=== PATIENT | male | born 1960 | race Caucasian/White ===

== ENCOUNTER 2024-09-08 08:10 | Outpatient (OUT) | payer BC, SELFPAY ==
[2024-09-08 08:30] LABS: Basophils Percent Auto 0.6 % (0.2-2.0); Eosinophils Absolute Auto 0.1 10^3/uL (0.0-0.7); Eosinophils Percent Auto 1.6 % (0.9-7.0); Hematocrit 41.9 % (42.0-54.0); Hemoglobin 13.9 g/dL (14.0-18.0); Immature Granulocytes Abs Auto 0.01 10^3/uL (0.00-0.03); Immature Granulocytes Pct Auto 0.2 % (0.0-0.5); Lymphocytes Percent Auto 21.4 % (20.5-60.0); Mean Corpuscular HGB Conc 33.2 g/dL (29.9-35.2); Mean Corpuscular Hemoglobin 31.7 pg (25.9-34.0); Mean Corpuscular Volume 95.7 fL (80.0-94.0); Monocytes Absolute Auto 0.5 10^3/uL (0.3-0.8); Monocytes Percent Auto 10.5 % (1.7-12.0); Neutrophils Absolute Auto 3.2 10^3/uL (1.4-6.5); Neutrophils Percent Auto 65.7 % (43.0-75.0); Platelet Count 241 10^3/uL (150-450); Red Blood Count 4.38 10^6/uL (4.70-6.10); Red Cell Distribution Width 13.5 % (11.0-15.0); White Blood Count 4.9 10^3/uL (4.0-11.0)
[2024-09-08 08:43] LABS: Estimated Average Glucose 131 mg/dL; Glycohemoglobin A1C 6.2 % (4.5-6.2)
[2024-09-08 08:44] LABS: Microalbum Creatinine Ratio Ur 10.2 mg/g (0.0-29.9); Microalbumin Urine Random <1.3 mg/dL (<=30.0)
[2024-09-08 09:24] LABS: Alanine Aminotransferase 45 U/L (16-63); Albumin Level 3.7 g/dL (3.4-5.0); Alkaline Phosphatase 74 U/L (46-116); Aspartate Amino Transferase 17 U/L (15-37); BUN Creatinine Ratio 12.2; Bilirubin Total 0.5 mg/dL (0.2-1.0); Calcium 8.9 mg/dL (8.5-10.1); Carbon Dioxide 29.8 mmol/L (21.0-32.0); Chloride 106 mmol/L (98-107); Chol HDL Ratio 3.4; Cholesterol 173 mg/dL (<=200); Estimated GFR (African America >60 (>=60 mL/min/1.73m^2); Estimated GFR (Non-African Ame 55 (>=60 mL/min/1.73m^2); Globulin 3.6 g/dL; Glucose 130 mg/dL (74-106); HDL Cholesterol 51 mg/dL (40-60); LDL Cholesterol Calculated 105.8 mg/dL; Potassium 3.8 mmol/L (3.5-5.1); Sodium 144 mmol/L (136-145); TSH W/ REFLEX FT4 3.484 uIU/mL (0.358-3.740); Total Protein 7.3 g/dL (6.4-8.2); Triglycerides 81 mg/dL (<=150); VLDL CHOLESTEROL 16.2 mg/dL
== END 2024-09-08 08:11 | disposition home or self-care (01) ==
LOC: LAB 08:15
DX: Z00.00 Encounter for general adult medical examination without abnormal findings (principal); I10 Essential (primary) hypertension
CPT/HCPCS: 36415; 80053; 80061; 82043; 82570; 83036; 84443; 85025

== ENCOUNTER 2025-04-19 10:15 | Outpatient (OUT) | payer MEDICARE, OTHER, SELFPAY ==
--- OUTSIDE RECORDS SUMMARY | 2024-11-30 08:50 | XMS_ITS ---
Author Organization [facility] in [place] Address [address] [place] [address] Care Team Providers Care Recreation Superintendent Name Role Phone Genaro Lopez MD Primary Care Provider Unavailab fady Ronaldo Saini Unavailable [phone] REASON FOR VISIT GRILL COOK-Referral Appointment Encounters Encounter Location Date Provider Diagnosis Pulmonary [facility] [place] [address] [place] [address] 11/30/2024 Ronaldomiles Saini Plan Of Treatment Next Appt Details Provider Name:Ronaldo Saini, 01/03/2026 11:00:00 AM, [address] [place], [address], Progress Notes * Satya JUNG RDOB:[birth year] (63 yo M)Acc No.[id number]:11/30/2024 Patient: David Satya FLORES :1960 A ge:63 Y S ex:Male Address:[address] [place] [address], [phone] * true * Date: Generated for Printi ng/Faxing/eTransmitting on: 0 04/19/2025 10:22 AM EDT
--- OUTSIDE RECORDS SUMMARY | 2025-01-03 07:00 | XMS_ITS ---
Author Organization [facility] in [place] Address [address] [place] [address] Care Team Providers Care Epic Specialist Name Role Phone Genaro Lopez MD Primary Care Provider Ronaldo Romero Unavailable [phone] Allergies No Known Allergies REASON FOR VISIT PRADEEP-Mtz Medical Medications Medication SIG (Take, Route, Frequency, Duration) Notes Start Date End Date Status amLODIPine Besylate 10 MG Oral for 90 Days Active Social History Tobacco Use: Social History Observation Description Date Details (start date - stop date) Never Smoker NA - NA Tobacco Control (Standard) Question Answer Notes Tobacco use: Nonsmoker Problems Problem Type SNOMED Code ICD Code Onset Dates Problem Status W/U Status Risk Notes Problem PRADEEP (obstructive sleep apnea) (G47.33) Active confirmed Vital Signs Weight 226.2 lbs 01/03/2025 Height 76 in 01/03/2025 Blood pressure systolic 175 mm Hg 01/04/20 25 Blood pressure diastolic 82 mm Hg 025 Temperature 96.8 degrees Fahrenheit 01/04/20 25 Heart Rate 68 /min 01/03/2025 Respiratory Rate 18 /min 01/03/2025 BMI 27.53 kg/m2 01/03/2025 Oximetry 98 % 01/03/2025 Encounters Encounter Location Date Provider Diagnosis Pulmonary Medicine [place] [address] [place] [address] 01/03/2025 Ronaldo Saini PRADEEP (obstructive sleep apnea) G47.33 Assessments Encounter Date Diagnosis (ICD Code) Assessment Notes Treatment Notes Treatment Clinical Notes Section Notes 01/03/2025 PRADEEP (obstructive sleep apnea) (ICD-10 - G47.33) Igjw-ju-xukv encounter performed with the patient to document continued need for PAP therapy. -Current DME: [facility] -PS11/02/2008; Initial AHI: 41 -Last PAP titration: 11/07/2008 @ 73wjL5S -Compliance was reviewed from 12/03/2024 - 01/01/2025 -Total days used: (100%) -Total of all days >4 hours of use: (100%) -Current model, mode, & pressure: AirSense 11 AutoSet [id number] -Residual AHI: 1.7 -Air leak (median): 0L/min -Mask/harness fitting: Well -Sleep quality: Improved with CPAP use -Daytime hypersomnolence: Decreased with CPAP use -Recommendations: Patient is doing very well with his CPAP. He has superb compliance. There are no significant concerning signs noted on data. AHI is improved from 41 at baseline to 1.7 with CPAP use. I discussed concerns with the patient regarding arbitrarily increasing his pressures without notifying a healthcare provider; explained that a jump of 10 to 79xwN2T can be significant, but he states he is tolerating the increased pressure and his sleep partner states he no longer snores. If he develops issues in the future, may need to consider changing to an auto CPAP setting. I also discussed that his last titration was over 16 years ago. He is doing well on the current settings, so I do not feel there is a need to repeat it. However, he is now Medicare age. Given the length of time since last CPAP titration (which was scored according to 2007 criteria, prior to when Medicare developedthe 4% desaturation rule), he may require a new study in order for him to get supplies, let alone new CPAP when needed. He voiced understanding and is willing to get a study if it is necessary. Otherwise, the patient was reminded to continue to wear the PAP @ bedtime and with any naps. -Note: This sdsf-ey-prrv visit comes with my authorization that the patient's DME may request to renew, reorder, and/or replace tubing, supplies, mask, and/or PAP device (if applicable). Plan Of Treatment Treatment Notes Assessment Notes PRADEEP (obstructive sleep apnea) Bdrk-wo-clfe encounter performed with the patient to document continued need for PAP therapy. -Current DME: [facility] -PS11/02/2008; Initial AHI: 41 -Last PAP titration: 11/07/2008 @ 51fyE3H -Compliance was reviewed from 12/03/2024 - 01/01/2025 -Total days used: (100%) -Total of all days >4 hours of use: 30 (100%) -Current model, mode, & pressure: AirSense 11 AutoSet [id number] -Residual AHI: 1.7 -Air leak (median): 0L/min -Mask/harness fitting: Well -Sleep quality: Improved with CPAP use -Daytime hypersomnolence: Decreased with CPAP use -Recommendations: Patient is doing very well with his CPAP. He has superb compliance. There are no significant concerning signs noted on data. AHI is improved from 41 at baseline to 1.7 with CPAP use. I discussed concerns with the patient regarding arbitrarily increasing his pressures without notifying a healthcare provider; explained that a jump of 10 to 00npR4M can be significant, but he states he is tolerating the increased pressure and his sleep partner states he no longer snores. If he develops issues in the future, may need to consider changing to an auto CPAP setting. I also discussed that his last titration was over 16 years ago. He is doing well on the current settings, so I do not feel there is a need to repeat it. However, he is now Medicare age. Given the length of time since last CPAP titration (which was scored according to 2007 criteria, prior to when Medicare developedthe 4% desaturation rule), he may require a new study in order for him to get supplies, let alone new CPAP when needed. He voiced understanding and is willing to get a study if it is necessary. Otherwise, the patient was reminded to continue to wear the PAP @ bedtime and with any naps. -Note: This qlyd-pf-fwud visit comes with my authorization that the patient's DME may request to renew, reorder, and/or replace tubing, supplies, mask, and/or PAP device (if applicable). Next Appt Details Follow Up: 1 Year, Reason: O SA Provider Name:Ronaldo Saini, 01/03/2026 11:00:00 AM, [address] [place], [address], Progress Notes * Satya JUNG RDOB:[birth year] (64 yo M)Acc No.[id number]:01/03/2025 New Patient Patient: Satya SY Provider: Lei Saini DO :1960 A ge:64 Y S ex:Male Date:01/03/2025 Address:[address] [place], [place] [address] Pcp:Genaro Lopez MD Check In:10:53 AM ESTCheck O ut:11:32 AM EST Subjective: * Chief Complaints: * O -[facility] * HPI: G eneral: NEW PATIENT 64yo male presents with history of PRADEEP. He was diagnosed in 2008 with severe PRADEEP with AHI 41.� Titration yielded target pressure of 71mgY3N. He has been compliant with his CPAP for years. States he received a new CPAP 2-3 years ago d/t the 5G upgrade (old CPAP was unable to transmit data). He states about 2-3 months ago his sleep partner noticed that he was snoring despite the CPAP; he arbitrarily changed the CPAP settings to 15 cm H2O. He states he is tolerating this pressure very well without any complaints. He is able to tolerate the higher pressure. Reviewed compliance data. He has superb compliance data with no concerning findings. Residual AHI is 1.7. MA Intake Comments:. Patient is self referred for PRADEEP. DME:[facility]. Patient is compliant with his PAP. Patient denies any complaints with his machine/supplies.Patient reports great benefit from his PAP and denies complaints today. E pworth Sleepiness Scale: Tovey Sleepiness Scale C ronan of dozing while sitting and reading:�0 - Never C ronan of dozing while watching TV: 0 - Never C ronan of dozing while sitting in a public place: 0 - Never C ronan of dozing as a passenger in a car for an hour without a break: 0 - Never C ronan of dozing while lying down in the afternoon to rest: 0 - Never C ronan of dozing while sitting and talking to someone: 0 - Never C ronan of dozing while sitting quietly after lunch: 0 - Never C ronan of dozing in a stopped car for a few minutes in traffic: 0 - Never T OTAL SCORE: 0 * ROS: G eneral/Constitutional: Fever or sweats d enies. C hange of appetite d enies. C hills d enies. W eight Change d enies. H EENT: Dry mouth d enies. S ore throat d enies. O ral Ulcers d enies. P ost Nasal Drip D enies. C ongestion D enies. H oarseness�Denies. C ardiovascular: Tachycardia d enies. E eden D enies. C hest pain d enies. P alpitations d enies. R espiratory: Chest tightness d enies. P leurisy D enies. D yspnea d enies. C ough d enies. H emoptysis d enies. W heezing d enies.� G astrointestinal: Acid Reflux/GERD/Heartburn d enies. D ysphagia d enies. M usculoskeletal: Arthralgias/joint pain D enies. S kin: Easy bruising d enies. R alexandra d enies. � N eurologic: Seizures d enies. T remor d enies. H ematology: Abnormal Bleeding d enies. P sychiatric: Anxiety d enies. * Active Problem List G47.33 PRADEEP (obstructive sle ep apnea) Modified On:01/03/2025W/U Status:confirmed * Medical History: * Surgical History: D enies Past Surgical History * Hospitalization/Major Diagno stic Procedure: D enies Past Hospitalization * Family History: F ather: diagnosed with Unspecified essential hypertension. M other: diagnosed with Unspecified essential hypertension. 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 D rugs/Alcohol: D rugs H ave you used drugs other than those for medical reasons in the past 12 months? N o D oes the Patient have a History of Drug Abuse in the Past? N o Caffeine I ntake: 1 -2 cups per day Coffee Do you drink alcohol?: Yes, Socially. Do you smoke marijuana?: Denies. * Medications: T akingamLODIPine Besylate 10 MG Tablet Oral Medication List reviewed and reconciled with the patientTaking amLODIPine Besylate 10 MG Tablet Oral Medication List reviewed and reconciled with the patient * Allergies: N .K.D.A.no[Allergies Verified] Objective: * Vitals: W t:226.2lbs, Ht:76in, BP:sittin/82mm Hg, Temp:Forehead:96.8F, HR:68/min, RR:18/min, BMI:27.53Index, Oxygen sat %:Room Air:98%, Ht-cm: 193.04 cm, Wt-k.6 kg. * Examination: E xam: GENERAL APPEARANCE: A ppears stated age. Skin N ormal. Mouth P ink and moist. Oropharynx M allampati Class IV. Trachea M idline. Chest N ormal. Respiratory Normal M ovements, E ffort N ormal. Auscultation N ormal breath sounds. Cardiac R egular rate and rhythm. Gastrointestinal N ormal. Vascular N o edema. Musculoskeletal N ormal posture. Neurological F ocal, intact. Psychiatric A lert and oriented x3. Mentation/Cognition N ormal. Assessment: * Assessment: 1. O SA (obstructive sleep apnea) - G47.33 (Primary) Plan: * Treatment: * Procedure Codes: * Preventive Medicine: COVID Vaccination: H as patient had COVID Vaccination? COVID Vaccination Y es 07/31/2021 Immunization Status: P neumovacc P t Refused. I nfluenza P t Refused. Screenings/Counseling: F ALL RISK SCREENING Fall Risk Assessment: N o falls in the past year Are you afraid of falling? N o T OBACCO ACTION PLAN Exclusion: M edical Reason Non Smoker Type of Medical Reason: N ot indicated F TREVON EXCLUSION Reason: P atient Reason refused/declined Type of Patient Reason: D rug declined by patient B MO ACTION PLAN Above Normal BMI Follow-up D ietary management education, guidance, and counseling * Follow Up: 1 Year (Reason: PRADEEP) * * Sign off status: Completed Visit Status: C HK (Check Out) true * Provider: Lei Saini DO Date: 0 01/03/2025 Generated for Lucioi jair/Famichaelg/eTransmitting on: 0 04/19/2025 10:22 AM EDT History and Physical Notes * HPI (History of Present Illness) Category Sub-Category Detail Notes Category Not es General Patient is self referred for PRADEEP. DME:[facility]. Patient is compliant with his PAP. Patient denies any complaints with his machine/supplies. Patient reports great benefit from his PAP and denies complaints today. Tovey Sleepiness Scale Tovey Sleepiness Scale Chance of dozing while sitting and reading:: 0 - Never Chance of dozing while watching TV:: 0 - Never Chance of dozing while sitting in a publ ic place:: 0 - Never Chance of dozing as a [place] in a car for an hour without a break:: 0 - Never Chance of dozing while lying down in the afternoon to rest:: 0 - Never Chance of dozing while sitting and talki ng to someone:: 0 - Never Chance of dozing while sitting quietly a fter lunch:: 0 - Never Chance of dozing in a stopped car for a few minutes in traffic:: 0 - Never TOTAL SCORE:: 0 Examination Category Sub-Category Detail Notes Category Not es Exam GENERAL APPEARANCE: Appears stated age Skin Normal Mouth [place] and moist Trachea Midline Chest Normal Respiratory Normal Movements, Ef fort Normal Auscultation Normal breath sounds Cardiac Regular rate and rhy thm Gastrointestinal Normal Vascular No edema Musculoskeletal Normal posture Neurological Focal, intact Psychiatric Alert and oriented x 3 Mentation/Cognition Normal Oropharynx Mallampati Class IV
--- OUTSIDE RECORDS SUMMARY | 2025-04-19 09:15 | XMS_ITS | Encounter Summary ---
Author Organization [facility] Address [address] [place] [address] Care Team Providers Care Public Works Director Name Role Phone Genaro Lopez MD Primary Care Provider [phone] Reason for Visit * Reason Comments Follow-up 6M F/UP Encounter Details Date Type Department Care Team ([facility] Contact Info) Description 04/19/2025 9:15 AM EDT Office Visit [facility] [address] [place] [address] Genaro Lopez MD [address] [place] [address] Benign essential hypertension (Primary Dx); PRADEEP (obstructive sleep apnea); Prediabetes; Iron deficiency anemia, unspecified iron deficiency anemia type; Colon cancer screening Social History Tobacco Use Types Packs/Day Years Used Date Smoking Tobacco: Never Passive Smoke Exposure: Never Smokeless Tobacco: Never Alcohol Use Standard Drinks/Week Comments Never 0 (1 standard drink = 0.6 oz pur e alcohol) B1300 Health Literacy Answer Date Recor ded How often do you need to hav e someone help you when you read instructions, pamphlets, or other written material from your doctor or pharmacy? Never 09/05/2024 Social Connection and Isolat ion Panel [NHANES] Answer Date Recorded In a typical week, how many times do you talk on the phone with family, friends, or neighbors? More than three times a week 09/05/2024 How often do you get togethe r with friends or relatives? More than three times a week 09/05/2024 How often do you attend [facility] or alevism services? 1 to 4 times per year 09/05/2024 Do you belong to any clubs o r organizations such as yazidism groups, unions, fraternal or athletic groups, or school groups? Yes 09/05/2024 How often do you attend meet ings of the clubs or organizations you belong to? More than 4 times per year 09/05/2024 Are you , , di vorced, , never , or living with a partner? 09/05/2024 AUDIT-C Answer Date Recorded Q1: How often do you have a drink containing alc ohol? Monthly or less 09/05/2024 Q2: How many drinks containi ng alcohol do you have on a typical day when you are drinking? 1 or 2 09/05/2024 Q3: How often do you have si x or more drinks on one occasion? Never 09/05/2024 Overall Financial Resource Strain (CARDIA) Answe r Date Recorded How hard is it for you to pa y for the very basics like food, housing, medical care, and heating? Not hard at all 09/05/2024 PHQ-2 Answer Date Recorded Patient Health Questionnaire-2 Score 0 03/31/2024 [facility] - Occupational Stress Questionnaire Answer Date Recorded Do you feel stress - tense, restless, nervous, or anxious, or unable to sleep at night because your mind is troubled all the time - these days? Not at all 09/05/2024 Exercise Vital Sign Answer Date Recorde d On average, how many days pe r week do you engage in moderate to strenuous exercise (like a brisk walk)? 6 days 09/05/2024 On average, how many minutes do you engage in exercise at this level? 60 min 09/05/2024 Hunger Vital Sign Answer Date Recorded Within the past 12 months, y ou worried that your food would run out before you got the money to buy more. Never true 09/05/20 24 Within the past 12 months, t he food you bought just didn't last and you didn't have money to get more. Never true 09/05/2024 PRAPARE - Transportation Answer Date Re corded In the past 12 months, has l ack of transportation kept you from medical appointments or from getting medications? No 11/2023 In the past 12 months, has l ack of transportation kept you from meetings, work, or from getting things needed for daily living? No 09/05/2024 Housing Stability Vital Sign Answer Edin e Recorded In the last 12 months, was t here a time when you were not able to pay the mortgage or rent on time? No 09/05/2024 In the past 12 months, how m any times have you moved where you were living? 0 09/05/2024 At any time in the past 12 m [facility], were you homeless or living in a penitentiary (including now)? No 09/05/2024 Sex and Gender Information Value Date Recorded Sex Assigned at Male 02/29/2024 8:54 AM EDT Legal Sex Male 11:09 PM EDT Gender Identity Male 02/29/2024 8:54 AM EDT Sexual Orientation Straight 12/14/2024 7: 56 AM EDT documented as of this encounter Last Filed Vital Signs Vital Sign Reading Time Taken Comments Blood Pressure 182/78 04/19/2025 9:38 AM EDT Pulse 70 04/19/2025 9:38 AM EDT Temperature 36.6 C (97.8 F) 04/19/2025 9:38 AM EDT Respiratory Rate 20 04/19/2025 9:38 AM EDT Oxygen Saturation 98% 04/19/2025 9:38 AM EDT Inhaled Oxygen Concentration - - Weight 104 kg (230 lb) 04/19/2025 9:38 AM EDT Height 193 cm (6' 4 ) 04/19/2025 9:38 AM EDT Body Mass Index 28 04/19/2025 9:38 AM EDT documented in this encounter Progress Notes * Genaro Lopez MD - 04/19/2025 10:00 AM EDTAssociated Problem(s): Prediabetes Repeat labs. * Genaro Lopez MD - 04/19/2025 10:00 AM EDTAssociated Problem(s): PRADEEP (obstructive sleep apnea) Doing well with CPAP and continue nightly. Patient is benefiting from PAP therapy. * Genaro Lopez MD - 04/19/2025 10:00 AM EDTAssociated Problem(s): Benign essential hypertension BP elevated today but previously controlled and monitor PRN. * Genaro Lopez MD - 04/19/2025 9:15 AM EDT Images from the original note were not included. Subjective Patient ID: Satya Fowler is a 64 y.o. male who presents for Follow-up (6M F/UP). Follow up HTN, prediabetes, and PRADEEP. Patient feels well today. Not checking BP away from office andpreviously controlled. BP elevated today at 182/78. Taking medication daily and tolerating without side effects. PRADEEP controlled with CPAP. Using machine nightly for entire time asleep, typically 6-8 hours. Sleeping well and not waking up as much during night. Rested in am and not as tired during day. Due for repeat labs. Review of Systems Constitutional: Negative for fatigue. Respiratory: Negative for cough, shortness of breath and wheezing. Cardiovascular: Negative for chest pain and palpitations. Gastrointestinal: Negative for abdominal pain, diarrhea, nausea and vomiting. Genitourinary: Negative for dysuria. Objective Physical Exam Constitutional: General: He is not in acute distress. Appearance: Normal appearance. HENT: Head: Normocephalic. Right Ear: Tympanic membrane and ear canal normal. Left Ear: Tympanic membrane and ear canal normal. Eyes: Extraocular Movements: Extraocular movements intact. Pupils: Pupils are equal, round, and reactive to light. Cardiovascular: Rate and Rhythm: Normal rate and regular rhythm. Heart sounds: No murmur heard. No friction rub. No gallop. Pulmonary: Breath sounds: Normal breath sounds. No wheezing, rhonchi or rales. Abdominal: General: Bowel sounds are normal. There is no distension. Palpations: Abdomen is soft. Tenderness: There is no abdominal tenderness. There is no guarding or rebound. Musculoskeletal: Left lower leg: No edema. Neurological: Mental Status: He is alert. Assessment/Plan Problem List Items Addressed This Visit Benign essential hypertension - Primary BP elevated today but previously controlled and monitor PRN. Relevant Orders Basic metabolic panel PRADEEP (obstructive sleep apnea) Doing well with CPAP and continue nightly. Patient is benefiting from PAP therapy. Prediabetes Repeat labs. Relevant Orders Hemoglobin A1c Iron deficiency anemia Relevant Orders CBC and differential Other Visit Diagnoses Colon cancer screening Relevant Orders Cologuard® colon cancer screening documented in this encounter Plan of Treatment Upcoming Encounters Date Type Department Care Team (Late st Contact Info) Description 08/15/2025 2:05 PM EST Office Visit [facility] [address] [place] [phone] Domi Russo MD [address] [place] [address] 09/13/2025 9:00 AM EST Office Visit [facility] [address] [place] [address] Genaro Lopez MD [address] [place] [address] Scheduled Orders Name Type Priority Associated Diagnoses Orde r Schedule Basic metabolic panel Lab Routine Benign essential hypertension Expected: 04/19/2025 (Approximate), Expires: 04/19/2026 Hemoglobin A1c Lab Routine Prediabetes Expected: 04/19/2025 (Approximate), Expires: 04/19/2026 CBC and differential Lab Routine Iron deficiency anemia, unspecified iron deficiency anemia type Expected: 04/19/2025 (Approximate), Expires: 04/19/2026 Cologuard colon cancer screening Lab Routine Colon cancer screening Expected: 04/19/2025 (Approximate), Expires: 04/19/2026 documented as of this encounter Visit Diagnoses Diagnosis Benign essential hypertension- Primary Essential hypertension, benign PRADEEP (obstructive sleep apnea) Obstructive sleep apnea (adult) (pediatric) Prediabetes Other abnormal glucose Iron deficiency anemia, unspecified iron deficiency anemia type Colon cancer screening Special screening for malignant neoplasms, colon documented in this encounter Care Teams Public Works Director Relationship Specialty Start Date End Date Genaro Lopez MD [address] [place] [phone] PCP - General Family Medicine 10/10/24 documented as of this encounter
--- OUTSIDE RECORDS SUMMARY | 2025-04-19 10:22 | XMS_ITS | Encounter Summary ---
Author Organization [facility] Address [address] [place] [address] Care Team Providers Care Manager Mobile Name Role Phone Genaro Lopez MD Primary Care Provider [phone] Encounter Details Date Type Department Care Team (Late Contact Info) Description 04/19/2025 Bamboo flowsheet [facility] [address] [place] [address] Genaro Lopez MD [address] [place] [address] Social History Tobacco Use Types Packs/Day Years [...] week 09/05/2024 How often do you attend chur or cheondoism services? 1 to 4 times per year 09/05/2024 Do you belong to any clubs o r organizations such as anabaptism groups, unions, fraternal or athletic groups, or [...] Recorded Patient Health Questionnaire-2 Score 0 03/31/2024 [facility] of Occupat ional [facility] - Occupational Stress Questionnaire Answer Date Recorded [...] any time in the past 12 m [facility], were you homeless or living in a chcf (including now)? No 09/05/2024 Sex and Gender Information Value Date Recorded Sex Assigned at Male 02/29/2024 8:54 AM EDT Legal Sex Male 11:09 PM EDT Gender Identity Male 02/29/2024 8:54 AM EDT Sexual Orientation Straight 12/14/2024 7: 56 AM EDT documented as of this encounter Plan of Treatment Upcoming Encounters Date Type Department Care Team (Late st Contact Info) Description 08/15/2025 2:05 PM EST Office Visit [facility] [address] [place] [address] Domi Russo MD [address] [place] [address] 09/13/2025 9:00 AM EST Office Visit [facility] [address] [place] [address] Genaro Lopez MD [address] [place] [address] documented as of this encounter Visit Diagnoses Not on filedocumented in this encounter Care Teams Manager Mobile Relationship Specialty Start Date End Date Genaro Lopez MD [address] [place] [address] PCP - General Family Medicine 10/10/24 documented as of this encounter
--- OUTSIDE RECORDS SUMMARY | 2025-04-19 10:22 | XMS_ITS | Encounter Summary ---
Author Organization [facility] Address [address] [place] [address] Care Team Providers Care Supervisor Jewelry Department Name Role Phone Genaro Lopez MD Primary Care Provider [phone] Encounter Details Date Type Department Care Team ([facility] Contact Info) Description 02/21/2025 Results Follow-Up [facility] [address] [facility] [address] [place] [address] Domi Russo MD [address] [facility] [address] [place] [address] Social History Tobacco Use Types Packs/Day Years [...] How often do you attend chur or amish services? 1 to 4 times per year 09/05/2024 Do you belong to any clubs o r organizations such as islam groups, unions, fraternal or athletic groups, or [...] Recorded Patient Health Questionnaire-2 Score 0 03/31/2024 [facility] of Occupat ional [facility] - Occupational Stress Questionnaire Answer [...] any time in the past 12 m [facility], were you homeless or living in a half-way (including now)? No 09/05/2024 Sex and Gender [...] 2:05 PM EST Office Visit [facility] [address] [place] [address] Domi Russo MD [address] [place] [address] 09/13/2025 9:00 AM EST Office Visit [facility] [address] [place] [address] Genaro Lopez MD [address] [place] [address] documented as of this encounter Visit Diagnoses Not on filedocumented in this encounter Care Teams Supervisor Jewelry Department Relationship Specialty Start Date End Date Genaro Lopez MD [address] [place] [address] PCP - General Family Medicine 10/10/24 documented as of this encounter
--- OUTSIDE RECORDS SUMMARY | 2025-04-19 10:22 | XMS_ITS | Patient Health Record ---
Author Organization [facility] [place] Address [address] [place] [address] Care Team Providers Care Case Work Aide Name Role Phone Genaro Lopez MD Primary Care Provider Ronaldo Romero Unavailable [phone] Allergies No Known Allergies Reason For Referral No Information Medications Medication SIG (Take, Route, Frequency, Duration) Notes Start Date End Date Status amLODIPine Besylate 10 MG Oral for 90 Days Active Immunizations Vaccine Route Administration Date Status Comme nts DTP - historic Unknown 09/28/2022 Administered SARS-COV-2 (COVID 19 Moderna - Booster 0.25mL) Unknown 07/31/2021 Administered Social History Tobacco Use: Social History Observation Description Date Details (start date - stop date) Never Smoker NA - NA Tobacco Control (Standard) Question Answer Notes Tobacco use: Nonsmoker Problems Problem Type SNOMED Code ICD Code Onset Dates Problem Status W/U Status Risk Notes Problem PRADEEP (obstructive sleep apnea) (G47.33) Active confirmed Vital Signs Heart Rate 68 /min 01/03/2025 Temperature 96.8 degrees Fahrenheit 01/03/2025 Respiratory Rate 18 /min 01/03/2025 Blood pressure diastolic 82 mm Hg 01/03/2025 Oximetry 98 % 01/03/2025 Height 76 in 01/03/2025 Blood pressure systolic 175 mm Hg 01/03/2025 Weight 226.2 lbs 01/03/2025 BMI 27.53 kg/m2 01/03/2025 Encounters Encounter Location Date Provider Diagnosis [facility] [address] [place] [address] 11/30/2024 Ronaldo Saini [facility] [address] [place] [address] 01/03/2025 Ronaldo Saini PRADEEP (obstructive sleep apnea) G47.33 Assessments Encounter Date Diagnosis (ICD Code) Assessment Notes Treatment Notes Treatment Clinical Notes Section Notes 01/03/2025 PRADEEP (obstructive sleep apnea) (ICD-10 - G47.33) Texe-bk-ofbm encounter performed with the patient to document continued need for PAP therapy. -Current DME: Mtz -PS11/02/2008; Initial AHI: 41 -Last PAP titration: 11/07/2008 @ [id number] -Compliance was reviewed from 12/03/2024 - 01/01/2025 -Total days used: (100%) -Total of all days >4 hours of use: (100%) -Current model, mode, & pressure: AirSense 11 AutoSet [id number] -Residual AHI: 1.7 -Air leak (median): 0L/min [...] explained that a jump of 10 to [id number] can be significant, but he states he [...] bedtime and with any naps. -Note: This gzll-go-ioil visit comes with my authorization that the patient's DME may request to renew, reorder, and/or replace tubing, supplies, mask, and/or PAP device (if applicable). Plan Of Treatment Next Appt Details Provider Name:Ronaldo Saini, 01/03/2026 11:00:00 AM, [address] [place], [address], Insurance Providers Payer Name Payer Address Payer Phone Subscriber Number Group Number Insured Name Patient Relationship to Insured Coverage Start Date Coverage End Date [place]IC[place] [address] [place] [address] [id number] Satya Fowler Self - patient is the insured 5 [facility] [address] [address] [place] [address] [id number] Satya Fowler Self - patient is the insured Medical (General) History Medical History History ICD Code PRADEEP (obstructive sleep apnea) G47.33 HTN (hypertension) I10 Chronic kidney disease, stage 3a N18.31 Prediabetes R73.09
--- OUTSIDE RECORDS SUMMARY | 2025-04-19 10:22 | XMS_ITS | Clinical Summary ---
Author Organization [facility] Address [address] [place] [address] Care Team Providers Care Political Science Chair Name Role Phone Genaro Lopez MD Primary Care Provider [phone] Allergies No known active allergies Medications amLODIPine (Norvasc) 10 MG tabletIndications :Primary hypertension Take 1 tablet (10 mg) by mouth Daily 90 tablet 3 12/15/2024 Active Active Problems Problem Noted Date Diagnosed Date Iron deficiency anemia 04/19/2025 Prediabetes 10/20/2024 Assessment & Plan (04/19/2025 10:00 AM EDT): Repeat labs. Assessment & Plan (10/20/2024 12:00 PM EST): Discussed low carb diet. CKD stage 3a, GFR 45-59 ml/min 10/20/2024 Assessment & Plan (10/20/2024 12:00 PM EST): Labs show CKD and will monitor. History of melanoma 10/20/2024 Assessment & Plan (10/20/2024 12:01 PM EST): Prior melanoma and follow with derm. Annual physical exam 09/06/2024 Assessment & Plan (09/06/2024 2:17 PM EST): I have reviewed Ht/Wt/BMI, I have reviewed recommended vaccines for patient's age, as well as all recommended screenings I have reviewed available care everywhere notes as well. I have recommended eating a balanced diet, as well as activity as chronic conditions allow It is recommended that the patient have a yearly eye exam, as well as twice a year dental exams Fu in this office for wellness on a yearly basis Diet: Eat three meals per day. Breakfast, lunch, and dinner. Avoid snacking. Avoid eating after 5/6 pm. Daily protein GOAL 35% of your intake; 30g per meal. Daily calorie GOAL 1,800-2,000 per day. Consider tracking your food intake on MyFtinessPal or LoseIt Water: Increase water intake; GOAL 64-80oz of water per day. Exercise: Increase activity. GOAL 30 minutes, 5 days per week. START SLOW. Start with 5 minutes, 5 days per week. Then increase to 10 days, 5 days per week. Continue to increase until you reach the goal. Increase steps; GOAL 10,000 steps per day. Be sure to get adequate sleep; GOAL 6-8 hours of sleep per night. BCC (basal cell carcinoma), back 03/07/2024 Benign essential hypertension 03/07/2024 Assessment & Plan (04/19/2025 10:00 AM EDT): BP elevated today but previously controlled and monitor PRN. Assessment & Plan (10/20/2024 11:59 AM EST): BP controlled and monitor PRN. Assessment & Plan (09/06/2024 2:14 PM EST): Currently taking amlodipine 10mg Checks BP at home; Averages are 125/80 Denies orthostatic changes, dizziness, cough, shortness of breath, swelling in extremities. Continue current regimen. Given BP log, advised pt to record BP and bring log back with them to next visit. Assessment & Plan (03/31/2024 2:28 PM EDT): BP well controlled. On average less than 130/90. Tolerating Anti hypertensive w/o adverse effects. C/w amlodipine. Assessment & Plan (03/07/2024 1:26 PM EDT): BP well controlled. On average less than 130/90. Tolerating Anti hypertensive w/o adverse effects. Patient encouraged to continue with home BP monitoring and call office if he experiences orthostatic symptoms or persistently elevated BP. C/w amlodipine. PRADEEP (obstructive sleep apnea) 11/30/2008 Assessment & Plan (04/19/2025 10:00 AM EDT): Doing well with CPAP and continue nightly. Patient is benefiting from PAP therapy. Assessment & Plan (10/20/2024 12:00 PM EST): Doing well with CPAP and continue nightly. Patient is benefiting from PAP therapy. Assessment & Plan (09/06/2024 2:15 PM EST): Hx of PRADEEP, uses it daily. Last Sleep Study in 2008. Compliant with CPAP. Assessment & Plan (03/31/2024 2:34 PM EDT): Hx of PRADEEP, uses it daily. Last Sleep Study in 2008. Compliant with CPAP, uses it more or less throughout the night. Will call in CPAP supplies for the patient. Resolved Problems Problem Noted Date Diagnosed Date Resolved Date Need for malaria prophylaxis 03/07/2024 10/20/2024 Assessment & Plan (03/07/2024 1:26 PM EDT): Traveling to [facility] - in June. Will stay there for 20 days. Called in [facility] for malaria px. Encounters Date Type Department Care Team Description 04/19/2025 9:15 AM EDT Office Visit [facility] [address] [place] [address] Geanro Lopez MD Benign essential hypertension (Primary Dx); PRADEEP (obstructive sleep apnea); Prediabetes; Iron deficiency anemia, unspecified iron deficiency anemia type; Colon cancer screening 04/19/2025 Bamboo flowsheet [facility] [address] [place] [address] Genaro Lopez MD 04/12/2025 Travel 02/21/2025 Results Follow-Up [facility] [address] [place] [address] Domi Russo MD 02/09/2025 10:45 AM EDT Office Visit [facility] [address] [place] [address] Domi Russo MD Epidermal inclusion cyst (Primary Dx); Seborrheic keratosis, inflamed; Lentigines; Sebaceous hyperplasia of face; Neoplasm of unspecified behavior of bone, soft tissue, and skin; Actinic keratosis; History of malignant melanoma of skin; History of SCC (squamous cell carcinoma) of skin; History of basal cell carcinoma 02/09/2025 Bamboo flowsheet [facility] [address] [place] [address] Domi Russo MD 02/09/2025 Travel 02/02/2025 Travel from Last 3 Months Immunizations Immunization Administration Dates Next Due DTP 09/28/2022 Riky SARS-CoV-2 12/12/2020 Moderna SARS-CoV-2 Booster Vaccination Family History Medical History Relation Name Comments Melanoma Neg Hx Social History Tobacco Use Types Packs/Day Years Used Date Smoking Tobacco: Never Passive Smoke Exposure: Never Smokeless Tobacco: Never Tobacco Cessation:Counseling Given: Not Answered Alcohol Use Standard Drinks/Week Comments Never 0 [...] 09/05/2024 How often do you attend chur ch or adventist services? 1 to 4 times per year 09/05/2024 Do you belong to any clubs o r organizations such as anglican groups, unions, fraternal or athletic groups, or [...] Recorded Patient Health Questionnaire-2 Score 0 03/31/2024 [facility] of Occupat ional Health - Occupational Stress Questionnaire Answer Date Recorded [...] any time in the past 12 m [facility], were you homeless or living in a [place] [facility] [place] facility (including now)? No 09/05/2024 Sex and Gender Information Value Date Recorded Sex Assigned at Male 02/29/2024 8:54 AM EDT Legal Sex Male 11:09 PM EDT Gender Identity Male 02/29/2024 8:54 AM EDT Sexual Orientation Straight 12/14/2024 7: 56 AM EDT Last Filed Vital Signs Vital Sign Reading [...] Mass Index 28 04/19/2025 9:38 AM EDT Plan of Treatment Upcoming Encounters Date Type Department Care Team (Late st Contact Info) Description 08/15/2025 2:05 PM EST Office Visit [facility] [address] [place] [address] Domi Russo MD [address] [place] [address] 09/13/2025 9:00 AM EST Office Visit [facility] [address] [place] [address] Genaro Lopez MD [address] [place] [address] Health Maintenance Due Date Last Done Comments CT Colonography 1959 Colonoscopy 1959 FIT-DNA 1959 FOBT 1959 Sigmoidoscopy 1959 Pneumococcal Vaccine: 65+ Ye ars (1 of 1 - PCV) 12/26/2009 Colorectal Cancer Screening 12/19/2023 FIT 12/19/2023 12/18/2022 Influenza Vaccine (#1) 2025 Medicare Annual Wellness (AWV) 09/06/2025 09/06/2024 , 07/30/2023 Procedures Procedure Name Priority Date/Time Associated Diagnosis Comments CRYOTHERAPY SKIN LESION Routine 02/10/20 25 10:53 AM EDT Actinic keratosis SKIN / NAIL BIOPSY Routine 02/09/2025 10 :53 AM EDT Neoplasm of unspecified behavior of bone, soft tissue, and skin CRYOTHERAPY SKIN LESION Routine 02/10/20 25 10:51 AM EDT Seborrheic keratosis, inflamed DERMATOPATHOLOGY EXAM Routine 02/09/2025 12:00 AM EDT Neoplasm of unspecified behavior of bone, soft tissue, and skin from Last 3 Months Results * Cryotherapy, skin lesion (02/09/2025 10:53 AM EDT) us Domi Russo MD DERM PROCEDURE ORDERABLES Fin al Result * Lesion biopsy (02/09/2025 10:53 AM EDT) Narrative Jade Reyes MA - 02/09/2025 10:53 AM EDT Type of biopsy: tangential Informed consent: discussed and consent obtained Informed consent comment: The risks and benefits of the biopsy were discussed. Risks include but are not limited to bleeding, infection, scarring, pain, and nerve damage. An opportunity to ask questions prior to the procedure was permitted and all questions were answered. Patient was prepped and draped in usual sterile fashion: area cleansed with alcohol. Anesthesia: the lesion was anesthetized in a standard fashion Anesthetic: 1% lidocaine w/ epinephrine 1-100,000 buffered w/ 8.4% NaHCO3 Instrument used: DermaBlade Hemostasis achieved with: electrodesiccation Outcome: patient tolerated procedure well Outcome comment: The specimen was placed in a prelabeled formalin container to be sent for pathology Post-procedure details: sterile dressing applied and wound care instructions given Post-procedure details comment: Emphasized need to contact clinic for any signs of infection, uncontrollable bleeding, or complications. Dressing type: bandage Additional details: Photo taken Amount of lidocaine used: 1.0 cc Result [facility] Domi Russo MD DERM PROCEDURE ORDERABLES Fin al Result * Cryotherapy, skin lesion (02/09/2025 10:51 AM EDT) Result [facility] Domi Russo MD DERM PROCEDURE ORDERABLES Fin al Result * Dermatopathology exam (02/09/2025 12:00 AM EDT) SPECIMEN TYPE ------ SPECIMEN: LEFT CHEST ------ [facility] ICD10 Code D48.5 [facility] PROTOCOL F - FLAT [facility] Final Diagnosis FEATURES CONSISTENT WITH RUPTURED FOLLICLE. COMMENT: The case was also reviewed with Dr. Elizabeth Cash. [facility] Gross Text [facility] Microscopic Description Microscopic examination performed on one original slide and subsequent multiple deeper sections. [facility] CPT 49821*1 [facility] Skin Topography unknown / Unknown 02/09/2025 10:53 AM EDT Comment:Differential Diagnos is: inflamed follicle vs SCC Check Margins: No Size of lesion: 0.8 x 0.7 cm Result [facility] Domi Russo MD LAB PATHOLOGY ORDERABLES Myrna l Result [facility] from Last 3 Months Insurance MEDICARE [employer] MEDICARE SUPPLEMENT Care Teams Political Science Chair Relationship Specialty Start Date End Date Genaro Lopez MD [address] [place] [address] PCP - General Family Medicine 10/10/24
--- OUTSIDE RECORDS SUMMARY | 2025-04-19 10:22 | XMS_ITS | Encounter Summary ---
Author Organization [facility] Address [address] [place] [address] Care Team Providers Care Beef Cattle Farm Manager Name Role Phone Genaro Lopez MD Primary Care Provider Encounter Details Date Type Department Care Team (Latest Contact Info) Description 04/12/2025 Travel Social History Tobacco Use Types Packs/Day Years [...] often do you attend chur ch or hoahaoism services? 1 to 4 times per year 09/05/2024 Do you belong to any clubs o r organizations such as druze groups, unions, fraternal or athletic groups, or [...] Recorded Patient Health Questionnaire-2 Score 0 03/31/2024 [facility] of Occupat ional Health - Occupational Stress [...] any time in the past 12 m [facility], were you homeless or living in a care home (including now)? No 09/05/2024 Sex and Gender [...] 2:05 PM EST Office Visit [facility] [address] [place] [address] Domi Russo MD [address] [place] [address] 09/13/2025 9:00 AM EST Office Visit [facility] [address] [place] [address] Genaro Lopez MD [address] [place] [address] documented as of this encounter Visit Diagnoses Not on filedocumented in this encounter Care Teams Beef Cattle Farm Manager Relationship Specialty Start Date End Date Genaro Lopez MD [address] [place] [address] PCP - General Family Medicine 10/10/24 documented as of this encounter
[2025-04-19 10:48] LABS: Hematocrit 42.7 % (42.0-54.0); Hemoglobin 14.1 g/dL (14.0-18.0); Immature Granulocytes Abs Auto 0.03 10^3/uL (0.00-0.03); Immature Granulocytes Pct Auto 0.6 % (0.0-0.5); Lymphocytes Absolute Auto 1.0 10^3/uL (1.2-3.8); Mean Corpuscular HGB Conc 33.0 g/dL (29.9-35.2); Mean Corpuscular Hemoglobin 31.2 pg (25.9-34.0); Mean Corpuscular Volume 94.5 fL (80.0-94.0); Platelet Count 266 10^3/uL (150-450); Red Blood Count 4.52 10^6/uL (4.70-6.10); White Blood Count 4.7 10^3/uL (4.0-11.0)
[2025-04-19 10:58] LABS: Anion Gap 14.1; Blood Urea Nitrogen 21.0 mg/dL (7.0-18.0); Calcium 9.4 mg/dL (8.5-10.1); Carbon Dioxide 28.7 mmol/L (21.0-32.0); Chloride 105 mmol/L (98-107); Estimated GFR (African America >60 (>=60 mL/min/1.73m^2); Estimated GFR (Non-African Ame >60 (>=60 mL/min/1.73m^2); Glucose 118 mg/dL (74-106); Potassium 3.8 mmol/L (3.5-5.1); Sodium 144 mmol/L (136-145)
== END 2025-04-19 10:16 | disposition home or self-care (01) ==
LOC: LAB 10:20
PROVIDERS: PCP Family Medicine; Visit Provider Family Medicine
DX: R73.03 Prediabetes (principal); D50.9 Iron deficiency anemia, unspecified; I10 Essential (primary) hypertension
CPT/HCPCS: 36415; 80048; 83036; 85025

== ENCOUNTER 2025-09-13 09:43 | Outpatient (OUT) | payer MEDICARE, OTHER, SELFPAY ==
--- OUTSIDE RECORDS SUMMARY | 2025-09-13 09:59 | XMS_ITS | CCD ---
Author Organization [facility] Care Team Providers Care Dental Receptionist Name Role Phone FLOWER MANN Attending Unavailable FLOWER MANN Admitting Unavailable DIMA HEALY Consulting Unavailable [place], DR ASHLIE Milton Primary [facility] Unavailable FLOWER MANN Consulting Unavailable CIRO MUÑIZ Consulting UnavailSHAIKH Philipp Perry Primary Care Unavailable FAHELEN, H Admitting Unavailable SHAIKH SOTO H Attending Unavailable CHARLES, ESTEVEZ H Consulting Unavailable Charles NORTH, Unavailable Genaro Oakes MD Primary Care Provider Ilsa Ozuna NP Unavailable [phone] Genaro Oakes MD Primary Care Provider [phone] DOMI ACUNA Attending Unavailable GENARO OAKES Attending Unavailable DOMI ACUNA Attending Unavailable ILSA OZUNA Attending UnavailDOMI Perez Attending Unavailable GENARO OAKES Attending Unavailable Genaro Oakes MD Primary Care Provider Medications Current Medications MedicationDrug Class(es)DatesSig (Normalized)Sig (Original)amLODIPine 10 mg oral tablet (20 sources)Dihydropyridine Calcium Channel BlockerStart: 50-32-7162lfzw 1 tablet by mouth once dailyamLODIPine (Norvasc) 10 MG tablet Indications: Primary hypertension Take 1 tablet (10 mg) by mouth Daily 90 tablet 3 04/19/2025 Active Start: 11-23-2023 End: 35-71-5686wush 1 tablet by mouth once dailyamLODIPine (Norvasc) 10 MG tablet Indications: Primary hypertension Take 1 tablet (10 mg) by mouth Daily 90 tablet 3 12/15/2024 Active Problems Active Problems Problem ClassificationProblemDateDocumented DateEpisodic/ChronicChronic kidney disease (14 sources)Chronic kidney disease stage 3A ; Translations: [CKD stage 3a, GFR 45-59 ml/min (CMS/HCC)]Onset: 437502-44-8748BpqyrnkWygrgwaudt and other anemia (1 source)Anemia; Translations: [Anemia, unspecified]61-89-4525WbwzsjrlK Codes: Fall (1 source)Other fall from one level to another, initial encounter; Translations: [OTH FALL 1 LEVEL TO ANOTHERINITIAL]Onset: 14-68-0264AywlnmfeZkyiqacdq hypertension (20 sources)Essential hypertension; Translations: [Essential (primary) hypertension]Onset: 036314-25-9943YfpyoehAccaokenxipcw and screening for infectious disease (1 source)Encounter for immunization; Translations: [ENCOUNTER FOR IMMUNIZATION] Onset: 64-64-3989DqfqkrxrFdwwkqvlr of skin (19 sources)History of malignant melanoma of the skin; Translations: [Personal history of malignant melanoma ofskin]Onset: 145294-26-8675Yruxukxk Neoplasms of unspecified nature or uncertain behavior (4 sources)Neoplastic disease; Translations: [Neoplasm of unspecified behavior of bone, soft tissue, and skin]13-27-9672ZpnbhucrJvuw wounds of head; neck; and trunk (5 sources)Laceration without foreign body of scalp, initial encounter; Translations: [Laceration without foreign body of other part of head, initial encounter]Onset: 29-[birth year]-1954AimsvdwjHtcxq and unspecified benign neoplasm (3 sources)Melanocytic nevus of right lower limb; Translations: [Melanocytic nevi of right lower limb, including hip]71-77-1120ImizrpqxVagww circulatory disease (4 sources)Elevated blood-pressure reading, without diagnosis of hypertension; Translations: [ELEVATED BP READING W/O DX HTN]Onset: 61-52-7402ZdlcifqeEcsbs injuries and conditions due to external causes (1 source)Other specified injuries of head, initial encounter; Translations: [OTH SPEC INJURIES HEAD INITIAL ENC]Onset: 66-36-6385VuejmxdwAguqv non- epithelial cancer of skin (20 sources)Basal cell carcinoma of back; Translations: [Basal cell carcinoma of skin of other part of trunk]Onset: 466168-36-8278ElvmmyfwHbamo screening for suspected conditions (not mental disorders or infectious disease) (4 sources)Encounter for screening for diabetes mellitus; Translations: [Encounter for screening for lipoid disorders]Onset: EpisodicOther skin disorders (3 sources)Seborrheic keratosis; Translations: [Other seborrheic keratosis] 74-97-6523VuytqocfNydqr skin disorders (5 sources)Lentiginosis; Translations: [Other melanin hyperpigmentation] 69-20-4588FrbgjutgFaeiv skin disorders (5 sources)Epidermoid cyst; Translations: [Epidermal cyst]95-26-1717Iyaazarc Other skin disorders (5 sources)Actinic keratosis; Translations: [Actinic keratosis]08-11-2024 EpisodicOther skin disorders (2 sources)Inflamed seborrheic keratosis; Translations: [Inflamed seborrheic keratosis]24-66-8178AsepzddlNoien skin disorders (2 sources)Sebaceous hyperplasia; Translations: [Other specified follicular disorders]70-71-2369BatphhwsXzhwdajb codes; unclassified (16 sources)Sleep apnea; Translations: [Sleep apnea, unspecified]Onset: 641492-52-2258ZljvmvdCvlwskqv codes; unclassified (16 sources)Obstructive sleep apnea syndrome; Translations: [Obstructive sleep apnea (adult) (pediatric)]Onset: 150308-80-6295JabskmmUpborpp and strains (1 source)Strain of muscle, fascia and tendon at neck level, initial encounter; Translations: [STRN MUSC FASCTENDON NECK LEVL INT]Onset: 16-79-1843Idqlnxfw Past or Other Problems Problem ClassificationProblemDateDocumented DateEpisodic/ChronicDeficiency and other anemia (7 sources)Iron deficiency anemia; Translations: [Iron deficiency anemia, unspecified]Onset: 169456-88-9909ZnotnblaHtfiohcz mellitus without complication (17 sources)Prediabetes; Translations: [Prediabetes]Onset: 748419-97-4574 EpisodicResidual codes; unclassified (20 sources)Prevention status; Translations: [Need for malaria prophylaxis] Onset: 03-07-2024 Resolved: 629829-59-0956Sujqdsra Results Test NameValueInterpretationReference RangeFacilityCryotherapy, skin lesionon 13-81-7496PLBN HealthcareALL CBC WITH AUTO DIFFon 02-70-1979IJKFJXKYV ABSOLUTE SAIR8NYNA HealthcareBasophils/100 WBC (Bld)0.6 %0.2 - 2.0 %[facility] Eosinophils/100 WBC (Bld)1.7 %0.9 - 7.0 %[facility] HospitalErythrocyte distribution width (RBC) [Ratio]13.3 %11.0 - 15.0 %[facility] HospitalHematocrit (Bld) [Volume fraction]42.7 %42.0 - 54.0 %[facility] HospitalHemoglobin (Bld) [Mass/Vol]14.1 g/dL 14.0 - 18.0 g/dLLiberty HospitalIMMATURE GRANULOCYTES ABS AUTO0.03NOBarton County Memorial Hospital Immature granulocytes/100 WBC (Bld)0.6 %High0.0 - 0.5 %[facility] Interpretation and review of laboratory resultsAbnormalNOBarton County Memorial Hospital LYMPHOCYTES ABSOLUTE DUOX6VzkIBDN [facility] CenterLymphocytes/100 WBC (Bld)21.4 %20.5 - 60.0 %[facility] CenterH (RBC) [Entitic mass]31.2 pg25.9 - 34.0 pgNOHermann Area District HospitalHC (RBC) [Mass/Vol]33 g/dL29.9 - 35.2 g/dLMissouri Baptist Medical CenterV (RBC) [Entitic vol]94.5 zVZocs83.0 - 94.0 fLNOBarton County Memorial HospitalMONOCYTES ABSOLUTE AUTO0.5 NOM HealthcareMonocytes/100 WBC (Bld)10.1 %1.7 - 12.0 %[facility] NEUTROPHILS ABSOLUTE AUTO3.1NOMS HealthcareNeutrophils/100 WBC (Bld)65.6 %43.0 - 75.0 %[facility] HospitalPlatelet mean volume (Bld) [Entitic vol]9.1 fLLow9.5 - 13.5 fLSaint Luke's Hospital EO #0.1NRusk [facility] YAM049XYZTBarton County Memorial Hospital RBC4.52 [facility] WBC4.7L[facility] HospitalCLINISYNCarolina Pines Regional [facility] Informationon 54-75-7309UJMT HealthcareType of biopsy: tangential Informed consent: discussed and [...] Photo taken Amount of lidocaine used: 1.0 [facility] Informationon 75-19-6365Mxozzuswhj: simple Destruction method: electrodesiccation and curettage Informed consent: discussed and consent obtained Informed consent comment: The risks of the procedure were discussed, including, but not limited to risks of scarring, darker or downstairs maid pigmentary changes, recurrence, infection, and incomplete removal Timeout: patient name, date of , surgical site, and procedure verified Timeout comment: Patient and provider identified site. Site was marked. Photo was taken and shown to patient, patient verified this is the correct site. Procedure prep: Patient was prepped and draped in usual sterile fashion Prep type: Chlorhexidine Anesthesia: the lesion was anesthetized in a standard fashion Anesthetic: 1% lidocaine w/ epinephrine 1-100,000 buffered w/ 8.4% NaHCO3 Curettage performed in three different directions: Yes Electrodesiccation performed over the curetted area: Yes Curettage cycles: 3 Lesion length (cm): 0.7 Lesion width (cm): 0.7 Margin per side (cm): 0 Final wound size (cm): 0.7 Hemostasis achieved with: electrodesiccation Outcome: patient tolerated procedure well with no complications Post-procedure details: wound care instructions given Post-procedure details comment: Post-procedure instructions were given verbally and in writing. The office will be contacted if the lesion fails to resolve despite treatment, or if a side effect develops such as abnormal crusting, scabbing, reddness, discharge, or tenderness. Additional details: Amount of lidocaine used: 1.0 cc Previous accession number: [id number] Health Pineville Rehabilitation HospitalALL CBC WITH AUTO DIFFon 15-65-7785AKZTGBWTS ABSOLUTE JEXS2ACCRLiberty HospitalBasophils/100 WBC (Bld)0.6 %0.2 - 2.0 %[facility] HospitalEosinophils/100 WBC (Bld)1.6 %0.9 - 7.0 % [facility] HospitalErythrocyte distribution width (RBC) [Ratio]13.5 %11.0 - 15.0 % [facility] HospitalHematocrit (Bld) [Volume fraction]41.9 %Low42.0 - 54.0 %[facility] HospitalHemoglobin (Bld) [Mass/Vol]13.9 g/dLLow14.0 - 18.0 g/dLLiberty Hospital IMMATURE GRANULOCYTES ABS AUTO0.01NOBarton County Memorial HospitalImmature granulocytes/100 WBC (Bld)0.2 %0.0 - 0.5 %[facility] HospitalInterpretation and review of laboratory resultsAbnormalLiberty HospitalLYMPHOCYTES ABSOLUTE TJOR9AkbREKONevada Regional Medical Center Lymphocytes/100 WBC (Bld)21.4 %20.5 - 60.0 %[facility] CenterH (RBC) [Entitic mass]31.7 pg25.9 - 34.0 pgMissouri Baptist Medical CenterHC (RBC) [Mass/Vol]33.2 g/dL29.9 - 35.2 g/dLMissouri Baptist Medical CenterV (RBC) [Entitic vol]95.7 qATxme10.0 - 94.0 fLLiberty HospitalMONOCYTES ABSOLUTE AUTO0.5NOBarton County Memorial HospitalMonocytes/100 WBC (Bld)10.5 % 1.7 - 12.0 %[facility] HospitalNEUTROPHILS ABSOLUTE AUTO3.2NOMS [facility] Neutrophils/100 WBC (Bld)65.7 %43.0 - 75.0 %NOMS HealthcarePlatelet mean volume (Bld) [Entitic vol]9 fLLow9.5 - 13.5 fLSaint Luke's Hospital EO #0.1NKindred Hospital DJA423EMTVBarton County Memorial Hospital RBC4.38LowSaint Luke's Hospital WBC4.9[facility] CLINISYMUSC [facility] Informationon 09-98-6352Yszx of biopsy: tangential Informed consent: discussed and [...] details: Photo taken Amount of lidocaine used: 1 [facility] [place][note 2]CBC AUTO DIFFon 01-46-2312TBCM #0.0 103/ulNormal0.0-0.1[facility] HospitalComment on above:Performed By: #### CBC #### [facility] [address] [place] [address] Dr. Isaias Gallardosophils/100 WBC (Bld)0.6 %Normal0.2-2.0[facility] Comment on above:Performed By: #### CBC #### [facility] [address] [place] [address] Dr. Isaias Winkler #0.1 103/ulNormal0.0-0.7The [facility] SpringfieldComment on above: Performed By: #### CBC #### [facility] [address] [place] [address] Dr. Yilan ChangEosinophils/100 WBC (Bld)1.2 %Normal0.9-7.0The [facility] Comment on above:Performed By: #### CBC #### [facility] [address] [place] [address] Dr. Isaias Lawrencerythrocyte distribution width (RBC) [Ratio]13.4 %Oeoxxl51.0-15.0 The [facility] SpringfieldComment on above:Performed By: #### CBC #### [facility] [address] [place] [address] Dr. Isaias WallHematocrit (Bld) [Volume fraction]42.3 %Bqlpgy81.0-54.0The [facility] SpringfieldComment on above:Performed By: #### CBC #### [facility] [address] [place] [address] Dr. Isaias WallHemoglobin (Bld) [Mass/Vol]14.3 g/iTSpcxgr99.0-18.0The [facility] SpringfieldComment on above:Performed By: #### CBC #### [facility] [address] [place] [address] Dr. Isaias WallIG #0.02 10e3/ulNormal0.00-0.03The [facility] SpringfieldComment on above:Performed By: #### CBC #### [facility] [address] [place] [address] Dr. Isaias WallIG %0.4 %Normal0.0-0.5The [facility] SpringfieldComment on above: Performed By: #### CBC #### [facility] [address] [place] [address] Dr. Isaias PruettMPH #1.2 103/ulNormal1.2-3.8The [facility] SpringfieldComment on above:Performed By: #### CBC #### [facility] [address] [place] [address] Dr. Isaias Pruettmphocytes/100 WBC (Bld)22.4 %Xmcgam55.5-60.0The [facility] SpringfieldComment on above:Performed By: #### CBC #### [facility] [address] [place] [address] Dr. Isaias Sumner DIFF REQNONormalThe [facility] SpringfieldComment on above: Performed By: #### CBC #### [facility] [address] [place] [address] Dr. Isaias Soler (RBC) [Entitic mass]31.3 saXakbrr12.9-34.0The [facility] SpringfieldComment on above:Performed By: #### CBC #### [facility] [address] [place] [address] Dr. Isaias Soler (RBC) [Mass/Vol]33.8 g/lYNnmysu48.9-35.2The [facility] SpringfieldComment on above:Performed By: #### CBC #### [facility] [address] [place] [address] Dr. Isaias Soler (RBC) [Entitic vol]92.6 eDMobrvm89.0-94.0The [facility] SpringfieldComment on above:Performed By: #### CBC #### [facility] [address] [place] [address] Dr. Isaias Swanson #0.4 103/ulNormal0.3-0.8The [facility] SpringfieldComment on above:Performed By: #### CBC #### [facility] [address] [place] [address] Dr. Isaias Norrisocytes/100 WBC (Bld)8.0 %Normal1.7-12.0The [facility] Comment on above:Performed By: #### CBC #### [facility] [address] [place] [address] Dr. Isaias Perdomo #3.5 103/ulNormal1.4-6.5The [facility] SpringfieldComment on above:Performed By: #### CBC #### [facility] [address] [place] [address] Dr. Isaias Duvallutrophils/100 WBC (Bld)67.4 %Vqfhuj47.0-75.0The [facility] SpringfieldComment on above:Performed By: #### CBC #### [facility] [address] [address] [address] Isaias WallPlatelet mean volume (Bld) [Entitic vol]8.9 fLCritically low 9.5-13.5The [facility] on above:Performed By: #### CBC #### [facility] [address] [address] [address] Isaias WallPLT235 103/oaNvwxos489-462Yap [facility]Como[facility] on above: Performed By: #### CBC #### [facility] [address] [address] [address] Isaias WallRBC4.57 106/ulCritically low4.70-6.10The [facility] SpringfieldComoakla[facility] hospital on above:Performed By: #### CBC #### [facility] [address] [place] [address] Dr. Isaias WallWBC5.1 103/ulNormal4.0-11.0The [facility] on above: Performed By: #### CBC #### [facility] [address] [place] [address] Dr. Isaias WallGLYCOHEMOGLOBIN A1Con [id number] RECOMMENDATIONSEE [facility] HospitalComoaklawn hospital on above:Result Comment: ADA RECOMMENDED LIMIT 4.0 - 6.0 ADA THERAPEUTIC TARGET < 7.0 ACTION SUGGESTED > 7.0Performed By: #### A1C #### [facility] [address] [place] [address] Dr. Isaias WallGlucose [Mass/Vol]131 mg/dLNoGenesis Hospital on above:Performed By: #### A1C #### [facility] [address] [address] [address] Isaias WallHbA1c (Bld) [Mass fraction]6.2 %Normal4.5-6.2The [facility] on above:Performed By: #### A1C #### [facility] [address] [place] [address] Dr. Isaias WallLIPID PROFILEon [id number]-HDL RATIO [facility] CampusComment on above:Result Comment: 3.3 - 4.4 LOW RISK 4.4 - 7.1 AVERAGE RISK 7.1 - 11.0 MODERATE RISK >11.0 HIGH RISKPerformed By: #### LIPID, CMP #### [facility] [address] [address] [address] Isaias WallCholesterol [Mass/Vol]154 mg/dLNormal<=200The [facility] Comment on above:Performed By: #### LIPID, CMP #### [facility] [address] [place] [address] Dr. Isaias WallCholesterol in HDL [Mass/Vol]44 mg/rXRpgehd75-51GfiMercy Health St. Elizabeth Boardman HospitalComment on above:Performed By: #### LIPID, CMP #### [facility] [address] [place] [address] Dr. Isaias WallCholesterol in LDL [Mass/Vol]88.0 mg/dLOhioHealth Doctors HospitalComment on above:Performed By: #### LIPID, CMP #### [facility] [address] [place] [address] Dr. Isaias Tiwariesterashish.total/Cholesterol in HDL [Mass ratio]3.5 {ratio} NormalMercy Health St. Elizabeth Boardman HospitalComment on above:Performed By: #### LIPID, CMP #### [facility] [address] [place] [address] Dr. Isaias Vera NORMAL> or = 60 mg/dl - LOW CARDIOVASCULAR RISK <40 mg/dl - HIGH CARDIOVASCULAR RISKOhioHealth Doctors HospitalComment on above:Performed By: #### LIPID, CMP #### [facility] [address] [place] [address] Dr. Isaias WallLDL CALC NORMALSEE [facility] HospitalComoaklawn hospital on above:Result Comment: <100 mg/dl OPTIMAL 100 - 129 mg/dl NEAR OR ABOVE OPTIMAL 130 - 159 mg/dl BORDERLINE HIGH 160 - 189 mg/dl HIGH >190 mg/dl VERY HIGH Performed By: #### LIPID, CMP #### [facility] [address] [place] [address] Dr. Isaias WallTriglyceride [Mass/Vol]110 mg/dLNormal<=150The [facility] Comment on above:Performed By: #### LIPID, CMP #### [facility] [address] [place] [address] Dr. Isaias ParisiLDL CALC22.0 mg/dLNormalThe [facility] SpringfieldComment on above: Performed By: #### LIPID, CMP #### [facility] [address] [place] [address] Dr. Isaias WallPROF 14(COMP METB)on 99-89-6284Ywegicj [Mass/Vol]3.8 g/dLNormal 3.4-5.0The [facility] SpringfieldComment on above:Performed By: #### LIPID, CMP #### [facility] [address] [place] [address] Dr. Isaias WallAlbumin/Globulin [Mass ratio]1.1 {ratio}NormalThe [facility] SpringfieldComment on above:Performed By: #### LIPID, CMP #### [facility] [address] [place] [address] Dr. Isaias Ferrer [Catalytic activity/Vol]62 U/HTmofwh87-277Geq [facility] SpringfieldComment on above:Performed By: #### LIPID, CMP #### [facility] [address] [place] [address] Dr. Isaias López [Catalytic activity/Vol]52 U/LRbofci61-88Dqf [facility] SpringfieldComment on above:Performed By: #### LIPID, CMP #### [facility] [address] [place] [address] Dr. Isaias Vicente gap [Moles/Vol]12.7 mmol/LNormalThe [facility] Comment on above:Performed By: #### LIPID, CMP #### [facility] [address] [place] [address] Dr. Isaias Langston [Catalytic activity/Vol]20 U/JVhztdc25-37Hsy [facility] SpringfieldComment on above:Performed By: #### LIPID, CMP #### [facility] [address] [place] [address] Dr. Isaias WallBilirubin [Mass/Vol]0.4 mg/dLNormal0.2-1.0The [facility] Comment on above:Performed By: #### LIPID, CMP #### [facility] [address] [address] [address] Isaias WallCalcium [Mass/Vol]9.2 mg/dLNormal8.5-10.1The [facility] Comment on above:Performed By: #### LIPID, CMP #### [facility] [address] [address] [address] Isaias WallChloride [Moles/Vol]102 mmol/HXewsiz60-551Uwq [facility] Comment on above:Performed By: #### LIPID, CMP #### [facility] [address] [address] [address] Isaias WallCO2 [Moles/Vol]28.3 mmol/MSpygke55.0-32.0The [facility] Comment on above:Performed By: #### LIPID, CMP #### [facility] [address] [place] [address] Dr. Isaias WallCreatinine [Mass/Vol]1.07 mg/dLNormal0.70-1.30The [facility] SpringfieldComment on above:Performed By: #### LIPID, CMP #### [facility] [address] [address] [address] Isaias LawrenceGFR-AF ST LUCIAN>60Normal>=60The [facility] SpringfieldComment on above:Performed By: #### LIPID, CMP #### [facility] [address] [place] [address] Dr. Isaias LawrenceGFR-NON AF ST LUCIAN>60Normal>=60The [facility] SpringfieldComment on above:Performed By: #### LIPID, CMP #### [facility] [address] [address] [address] Isaias WallGlobulin (S) [Mass/Vol]3.6 g/dLNormalThe [facility] SpringfieldComment on above:Performed By: #### LIPID, CMP #### [facility] [address] [place] [address] Dr. Isaias WallGlucose [Mass/Vol]118 mg/dLCritically exjj10-276Ona [facility] SpringfieldComment on above:Performed By: #### LIPID, CMP #### [facility] [address] [place] [address] Dr. Isaias WallPotassium [Moles/Vol]4.0 mmol/LNormal3.5-5.1The [facility] Comment on above:Performed By: #### LIPID, CMP #### [facility] [address] [place] [address] Dr. Isaias WallProtein [Mass/Vol]7.4 g/dLNormal6.4-8.2The [facility] Comment on above:Performed By: #### LIPID, CMP #### [facility] [address] [place] [address] Dr. Isaias WallSodium [Moles/Vol]139 mmol/ZSpdogt144-587Mps [facility] Comment on above:Performed By: #### LIPID, CMP #### [facility] [address] [place] [address] Dr. Isaias WallUrea nitrogen [Mass/Vol]16.0 mg/dLNormal7.0-18.0The [facility] SpringfieldComment on above:Performed By: #### LIPID, CMP #### [facility] [address] [place] [address] Dr. Isaias WallUrea nitrogen/Creatinine [Mass ratio]15.0 mg/mgNormalThe [facility] SpringfieldComment on above:Performed By: #### LIPID, CMP #### [facility] [address] [place] [address] Dr. Isaias WallCT FACIAL BONES WO CONon [id number] FACIAL BONES WO CON EXAMINATION: CT FACIAL BONES WO CON, CT CSPINE WO CON HISTORY: UNSPECIFIED INJURY OF HEAD, INITIAL ENCOUNTER COMPARISON: CT head performed contemporaneously and reported separately. TECHNIQUE: CT examination of the facial bones and cervical spine without IV contrast. Coronal and sagittal reformations were performed. Dose reduction techniques were achieved by using automated exposure control and/or adjustment of mA and/or kV according to patient size and/or use of iterative reconstruction technique. FINDINGS: CT facial bones Soft tissues: Laceration with associated subcutaneous emphysema involving the prefrontal soft tissues overlying the mandibular symphysis. Orbits: Globes intact. No fractures or masses. Sinuses: Clear. Midface/nasal cavity: No fractures or masses. Mandible: No fractures or destructive lesions. CT cervical spine Alignment: Straightening of the normal cervical lordosis. No substantial subluxation. Vertebrae: Vertebral body heights are maintained. No fracture. Craniocervical junction: No focal abnormality. Degenerative changes: Mild to moderate degenerative changes of the cervical spine with disc height loss, osteophytic spurring, uncovertebral and facet arthropathy. Minimal canal stenosis is present at multiple levels. Multilevel mild foraminal stenosis. Additional Comments: None. IMPRESSION: CT facial bones Laceration involving the prefrontal soft tissues overlying the mandibular symphysis with associated subcutaneous emphysema. No associated mandibular fracture is seen. CT cervical spine No acute fracture or traumatic malalignment. Electronically authenticated by: CIRO MUÑIZ Date: 2022-09-28 15:23 [id number] HEAD WO CONEXAMINATION: CT HEAD WO CON, , 09/28/2022, 1:39 PM EST INDICATION: UNSPECIFIED INJURY OF HEAD, INITIAL ENCOUNTER HISTORY: Ordering Provider Reason for Exam: Technologist Note: Additional: COMPARISON: None. TECHNIQUE: CT scan of the head was performed without IV contrast. CT dose reduction technique was used, including Automated Exposure Control. FINDINGS: Paranasal sinuses clear. Mastoid air cells clear. Skull base intact. No skull lesion. Nasopharynx normal. Nanotechnology Technician spaces normal. Extracranial soft tissue structures unremarkable. No hydrocephalus. No mass effect. No shift of midline. No acute intracranial hemorrhage. No masses. End Findings. IMPRESSION: Normal CT of the head. Electronically authenticated by: DIMA HEALY Date: 2022-09-28 15:53[facility] Vital Signs Date TimeVital SignValuePerforming QiasmpgttGfnivpwo33-88-2311 09:38-0400Body vdymhn611 cmGenaro Oakes MD Work Phone: [facility] HospitalVjtltpmcgr76-01-5931 09:38-0400Body mass index (BMI) [Ratio]28 kg/m2Genaro Oakes MD Work Phone: [facility] HospitalTzbuipzyzk99-04-0308 09:38-0400Body temperature 97.81 [degF]Genaro Oakes MD Work Phone: [facility] HospitalCxvokjcqjk73-88-8671 09:38-0400Body xsnsue698.33 kgGenaro Oakes MD Work Phone: [facility] HospitalKetbgryths14-91-1350 09:38-0400Diastolic blood vzlaysvd13 mm[Hg]Genaro Oakes MD Work Phone: [facility] HospitalVjdwqmjvpk63-22-3774 09:38-0400Heart rate70 /min Genaro Oakes MD Work Phone: [facility] HospitalPdqowzvnty22-54-5878 09:38-0400Respiratory rate20 /minGenaro Oakes MD Work Phone: [facility] HospitalFbpunvloth76-02-5979 09:38-2484HkO3% (BldA) [Mass fraction]98 %Genaro Oakes MD Work Phone: [facility] HospitalNgoliruove95-10-7941 09:38-0400Systolic blood gkgarcpt883 mm[Hg]Genaro Oakes MD Work Phone: [facility] HospitalLblsxkfoia71-95-9305 11:14-0500Body ozdwpn624 cm Genaro Oakes MD Work Phone: [facility] HospitalJazxberwmz27-78-0566 11:14-0500Body mass index (BMI) [Ratio]27.14 kg/m2Genaro Oakes MD Work Phone: [facility] HospitalTofewiosic83-35-5098 11:14-0500Body temperature 97.81 [degF]Genaro Oakes MD Work Phone: [facility] HospitalIprxnpvytp49-45-3634 11:14-0500Body qatmng478.15 kgGenaro Oakes MD Work Phone: [facility] HospitalEksrrqiltr31-90-7297 11:14-0500Diastolic blood kpcbnvby20 mm[Hg]Genaro Oakes MD Work Phone: [facility] HospitalNjsmpfvyps27-89-8005 11:14-0500Heart rate70 /min Genaro Oakes MD Work Phone: [facility] HospitalYgqitncejy44-02-3244 11:14-0500Respiratory rate20 /minGenaro Oakes MD Work Phone: 1(776)903-[address] [place], [place] [address]Wsfswnkfem61-71-1408 11:14-3509NfU2% (BldA) [Mass fraction]97 %Genaro Oakes MD Work Phone: [phone] [place], [place] [address]Iynidpwdee18-57-1881 11:14-0500Systolic blood cvhwyliw973 mm[Hg]Genaro Oakes MD Work Phone: [facility] HospitalEidtdsgrff14-12-8439 13:59-0500Body asgbvy392 cm Ilsa Ozuna WALLPAPER HANGER HELPER Work Phone: [phone])007-[address] [place], [place] [address]Gcjjscqnsj78-39-2606 13:59-0500Body mass index (BMI) [Ratio]26.34 kg/z7Trtguagn Ozuna WALLPAPER HANGER HELPER Work Phone: [facility] HospitalWrazwwhnoc07-60-1511 13:59-0500Body temperature 97.2 [degF]Ilsa Ozuna WALLPAPER HANGER HELPER Work Phone: [facility] HospitalBrxwaxhukl78-51-7497 13:59-0500Body enddjx93.16 kgBrittany Ozuna WALLPAPER HANGER HELPER Work Phone: [facility] HospitalYwircivsug05-60-9876 13:59-0500Diastolic blood qmlphtfu46 mm[Hg]Ilsa Ozuna WALLPAPER HANGER HELPER Work Phone: [facility] HospitalNgbejxkcqk39-27-3373 13:59-0500Heart rate72 /min Ilsa Ozuna WALLPAPER HANGER HELPER Work Phone: [facility] HospitalSuwwksitda99-24-6313 13:59-0500Respiratory rate16 /minBebeittfeli Ozuna WALLPAPER HANGER HELPER Work Phone: [facility] HospitalBkdfqxzrgq84-54-4490 13:59-3267LvH9% (BldA) [Mass fraction]97 %Ilsa Hernandezpatrick WALLPAPER HANGER HELPER Work Phone: [facility] Cydadjohsf90-95-8208 13:59-0500Systolic blood wuierxwv211 mm[Hg]Ilsa Hernandezpatrick WALLPAPER HANGER HELPER Work Phone: [facility] Encounters Encounter DateEncounter TypeCare ProviderFacilityStart: 08-15-2025 End: 75-43-3682Xessna outpatient visit 15 minutesDomi Acuna MD Work Phone: [facility] [place] DermatologyComment on above:Seborrheic keratosis (Primary Dx); History of malignant melanoma of skin; History of SCC (squamous cell carcinoma) of skin; History of basal cell carcinoma; Actinic keratosis; Melanocytic nevus of right lower extremity; Epidermal inclusion cyst; LentiginesStart: 08-15-2025 End: 22-77-7251pxrpclxzclRAZRV A PETITTINot AvailableStart: 08-15-2025 End: 82-64-9047Jvdxes flowsheetDomi Acuna MD Work Phone: [facility] DermatologyStart: 08-15-2025 End: 84-56-0540Ptfhggjhony Acuna MD Work Phone: [facility] [place] DermatologyStart: 04-19-2025 End: 15-84-3612Cflknv Ivett Oakes MD Work Phone: [facility] CWM FMStart: 04-19-2025 End: 22-69-0442Jsmvry flowsheetGenaro Oakes MD Work Phone: [facility] CWM FMStart: 04-19-2025 End: 89-89-2062Yvrooppxx Result EncounterGenaro Oakes MD Work Phone: [facility] External Department UnsolicitedStart: 04-19-2025 End: 64-77-1689Vyqveo outpatient visit 25 minutesGenaro Oakes MD Work Phone: [facility] CWM FMComment on above:Benign essential hypertension (Primary Dx); PRADEEP (obstructive sleep apnea); Prediabetes; Iron deficiency anemia, unspecified iron deficiency anemia type; Colon cancer screeningStart: 04-19-2025 End: 52-02-7347aufpwiaduqVTQI NADERERNot AvailableStart: 02-09-2025 End: 48-87-9865Xxtvju Juhi Acuna MD Work Phone: [facility] SWS DERMStart: 02-09-2025 End: 54-18-3664Sqtfuv flowsRuma Acuna MD Work Phone: [facility] SWS DERMStart: 02-09-2025 End: 36-88-1453Mrjlai outpatient visit 15 minutesEmshahab Acuna MD Work Phone: [facility] SWS DERMComment on above:Epidermal inclusion cyst (Primary Dx); Seborrheic keratosis, inflamed; Lentigines; Sebaceous hyperplasia of face; Neoplasm of unspecified behavior of bone, soft tissue, and skin; Actinic keratosis; History of malignant melanoma of skin; History of SCC (squamous cell carcinoma) of skin; History of basal cell carcinomaStart: 02-09-2025 End: 78-91-7307racseusinpZYLMZ A PETITTINot AvailableStart: 12-15-2024 End: 85-15-0133WzbkeaNdrr Naderer MD Work Phone: [facility] CWM FMComment on above:Primary hypertension (CMS/HCC)Start: 10-20-2024 End: 22-03-5369Ohsssi Ivett Oakes MD Work Phone: NOGR CWM FMStart: 10-20-2024 End: 54-90-1479Mqcszb Ivett Oakes MD Work Phone: NOZR CWM FMStart: 66-88-8632Iphmzqp encounter procedureGenaro Oakes MD Work Phone: N[facility] HealthcareStart: 10-20-2024 End: 47-32-9125Qcotzn outpatient visit 25 minutesGenaro Oakes MD Work Phone: [facility] CWM FMComment on above:Benign essential hypertension (CMS/HCC) (Primary Dx); CKD stage 3a, GFR 45-59 ml/min (CMS/HCC); Prediabetes; PRADEEP (obstructive sleep apnea); History of melanomaStart: 10-20-2024 End: 51-33-1487epkthkkgxdDUYS NADERERNot AvailableStart: 09-14-2024 End: 52-66-4381Bhcnsny encounter procedureDomi Acuna MD Work Phone: [facility] SWS DERMComment on above:Basal cell carcinoma of skin of left lower limb, including hip (Primary Dx)Start: 09-14-2024 End: 97-09-4813egwvclxfmyBZCXU A PETITTINot AvailableStart: 09-14-2024 End: 22-80-4984Twpbxb flowsRuma Acuna MD Work Phone: [facility] SWS DERMStart: 09-14-2024 End: 01-60-4498Yyswad flowsRuma Acuna MD Work Phone: [facility] SWS DERMStart: 09-08-2024 End: 65-32-7764Qjbsxzvim Result EncounterBrittany Ozuna WALLPAPER HANGER HELPER Work Phone: [facility] External Department UnsolicitedStart: 09-08-2024 End: 17-43-6604Scqelqrpd Result EncounterBrittany Ozuna WALLPAPER HANGER HELPER Work Phone: [facility] External Department UnsolicitedStart: 09-08-2024 End: 70-28-2734Fperbc OnlyBrittany Ozuna WALLPAPER HANGER HELPER Work Phone: [facility] CWM FMComment on above:Anemia, unspecified type (Primary Dx); PrediabetesStart: 09-06-2024 End: 69-98-5017Nszaco flowsheetBrittany Ozuna WALLPAPER HANGER HELPER Work Phone: [facility] CWM FMStart: 09-06-2024 End: 05-36-2286Sjamlz flowsheetBrittany Ozuna WALLPAPER HANGER HELPER Work Phone: [facility] CWM FMStart: 09-06-2024 End: 62-11-9531Firjbgb encounter statusIlsa Ozuna WALLPAPER HANGER HELPER Work Phone: [facility] HealthcareStart: 09-06-2024 End: 95-50-6453Acnokurs preventive med est patient 40-64yrsIlsa Ozuna WALLPAPER HANGER HELPER Work Phone: [facility] CWM FMComment on above:Primary hypertension (CMS/HCC) (Primary Dx); Sleep apnea in adult; Wellness examinationStart: 09-06-2024 End: 47-42-3795jeersylmzvGDNBAXIN FITZPATRICKNot AvailableStart: 08-11-2024 End: 18-83-6860Kmjnsw flowsheetEmshahab Acuna MD Work Phone: [facility] SWS DERMStart: 08-11-2024 End: 17-61-9493Nhcmdm flowsheetEmshahab Acuna MD Work Phone: [facility] SWS DERMStart: 08-11-2024 End: 62-85-4894Rqwujj outpatient visit 15 minutesEmshahab Acuna MD Work Phone: [facility] SWS DERMComment on above:Seborrheic keratosis (Primary Dx); Lentigines; Melanocytic nevus of right lower extremity; Epidermal inclusion cyst; Actinic keratosis; History of SCC (squamous cell carcinoma) of skin; History of malignant melanoma of skin; Neoplasm of unspecified behavior of bone, soft tissue, and skinStart: 08-03-2024 End: 66-67-3198RwjplmVjgkPiedad PADILLA CWM FMComment on above:Primary hypertension (CMS/HCC)Start: 10-28-2022 End: 98-40-6797wbkygmstuvFRSZIK H FAWWADFacility:E3Dvgot: 09-28-2022 End: 43-92-8449aemvpauqeeGLTKEZ RODRIGUEZFacility:H1 Procedures DateProcedureProcedure DetailPerforming ClinicianStart: 76-77-6145YIUUGRREQAA SKIN LESIONEmshahab Acuna MD Work Phone: Start: 10-87-6140TOG CBC WITH AUTO DIFFMarc Jessica NORTH Work Phone: Start: 25-00-5902HVLL / NAIL BIOPSYDomi Acuna MD Work Phone: Start: 02-09-2025 End: 52-73-6967CKMBBINMWPS SKIN LESIONEmily Giovani Acuna MD Work Phone: Start: 28-56-7214WHHLOCCQAHS OF LESIONEmily Giovani Acuna MD Work Phone: Start: 67-37-8883EVK CBC WITH AUTO DIFFBrittany Ozuna WALLPAPER HANGER HELPER Work Phone: Start: 06-14-5138HAXY / NAIL BIOPSYEmshahab Acuna MD Work Phone: Start: 96-71-2085YTMJEHHLMTQ SKIN LESIONEmily Giovani Acuna MD Work Phone: Plan of Treatment DateCare ActivityDetailAuthorStart: 02-13-2026 End: 66-43-3626Rztchex encounter bivowsfyy99/12/2026 11:20 AM EDT Office Visit [facility] [address] [place], [id number] Domi Acuna MD [address] [place] [address] [facility] DermatologyStart: 12-24-2025 Screening for malignant neoplasm of colonNOMS HealthcareStart: 09-13-2025 End: 55-63-5221Wgmttdn encounter /10/2025 9:00 AM EST Office Visit [facility] [address] [place] [phone] Genaro Oakes MD [address] [place] [phone] [facility] CWM FMStart: 12-03-2025Medicare Annual Wellness (AWV)Medicare Annual Wellness (AWV)[facility] HealthcareStart: 08-15-2025 End: 58-18-1199Czytksx encounter procedureNOMS SWS DERMComment on above:Arrived Start: 03-55-4491OJAPK-19 Vaccine ( season)COVID-19 Vaccine ()[facility] HealthcareStart: 10-26-9958Bixyilsvu vaccinationNOMS HealthcareStart: 04-19-2025 End: 57-89-6376Tzjci metabolic 1998 panel - Serum or PlasmaBasic metabolic panel Lab Routine Benign essential hypertension Expected: 04/19/2025 (Approximate), Expires: 04/19/2026[facility] Work Phone: Comment on above:Expected: 04/19/2025 (Approximate), Expires: 04/19/2026Start: 04-19-2025 End: 98-54-6049ONQ W Auto Differential panel - BloodCBC and differential Lab Routine Iron deficiency anemia, unspecified iron deficiency anemia type Exp ected: 04/19/2025 (Approximate), Expires: 04/19/2026[facility] HealthcareComment on above:Expected: 04/19/2025 (Approximate), Expires: 04/19/2026Start: 04-19-2025 End: 71-16-0638Pwujbovpep A1c/Hemoglobin.total in BloodHemoglobin A1c Lab Routine Prediabetes Expected: 04/19/2025 (Approximate), Expires: 04/19/2026[facility] HealthcareComment on above:Expected: 04/19/2025 (Approximate), Expires: 04/19/2026Start: 04-19-2025 End: 74-02-7265Exqnbcmbvjf colorectal cancer DNA and occult blood screening [Presence] in StoolCologuard colon cancer screening Lab Routine Colon cancer screening Expected: 04/19/2025 (Approximate), Expires: 04/19/2026[facility] Comment on above:Expected: 04/19/2025 (Approximate), Expires: 04/19/2026Start: 04-19-2025 End: 57-39-2618Bgxqlts encounter procedureNOMS CWM FMComment on above:Arrived Start: 32-04-7241Tslmsfygk vaccinationInfluenza Vaccine (#1)[facility] Comment on above:Postponed from 06/05/2024 (Patient Refused)Start: 03-07-2025 End: 25-59-4095Ltcgoof encounter jboielsal62/03/2025 9:00 AM EDT Office Visit [facility] [address] [place] [phone] Ilsa Ozuna, DELROY [address] [place] [phone] [facility] CWM FMStart: 02-09-2025 End: 87-42-4117Qvzlgiv encounter procedureNOMS SWS DERMComment on above:Arrived Start: 12-07-2024 End: 23-22-0834Czturqjfmv A1c/Hemoglobin.total in BloodHemoglobin A1c Lab Routine Prediabetes Expected: 12/07/2024 (Approximate), Expires: 09/08/2025[facility] HealthcareComment on above:Expected: 12/07/2024 (Approximate), Expires: 09/08/2025Start: 10-20-2024 End: 36-86-4312Wshjusp encounter ocymqnlan79/16/2025 11:00 AM EST Office Visit [facility] [address] [place] [phone] Genaro Oakes MD [address] [place] [phone] ArrivedNOMS CWM FMComment on above:ArrivedStart: 09-14-2024 End: 61-53-0842Dlegemr encounter procedureNOMS SWS DERMComment on above:Arrived Start: 09-08-2024 End: 86-67-8030Vkzrdpzcs (Vitamin B12) [Mass/volume] in Serum or PlasmaVitamin B12 Lab Routine Anemia, unspecified type Expected: 09/08/2024 (Approximate), Expires: 09/08/2025[facility] Work Phone: Comment on above:Expected: 09/08/2024 (Approximate), Expires: 09/08/2025Start: 09-08-2024 End: 79-94-9671Epqwista [Mass/volume] in Serum or PlasmaFerritin Lab Routine Anemia, unspecified type Expected: 09/08/2024 (Approximate), Expires: 09/08/2025 [facility] HealthcareComment on above:Expected: 09/08/2024 (Approximate), Expires: 09/08/2025Start: 09-08-2024 End: 59-35-3707Xxvs + transferrin + TIBCIron + transferrin + TIBC Lab Routine Anemia, unspecified type Expected: 09/08/2024 (Approximate), Expires: 09/08/2025 [facility] HealthcareComment on above:Expected: 09/08/2024 (Approximate), Expires: 09/08/2025Start: 09-08-2024 End: 29-51-7474Wsuuqspnkwe of occult blood in single stool specimenOccult blood x 1, stool Lab Routine Anemia, unspecified type Expected: 09/08/2024 (Approximate), Expires: 09/08/2025[facility] HealthcareComment on above:Expected: 09/08/2024 (Approximate), Expires: 09/08/2025Start: 09-06-2024 End: 42-47-8353WJI W Auto Differential panel - BloodCBC and differential Lab Routine Primary hypertension (CMS/HCC) Wellness examination Expected: 09/06/2024 (Approximate), Expires: 09/06/2025[facility] HealthcareComment on above:Expected: 09/06/2024 (Approximate), Expires: 09/06/2025Start: 09-06-2024 End: 09-67-2883Zuhmgncjpohar metabolic 2000 panel - Serum or PlasmaComprehensive metabolic panel Lab Routine Primary hypertension (CMS/HCC) Wellness examination Expected: 09/06/2024 (Approximate), Expires: 09/06/2025[facility] HealthcareComment on above:Expected: 09/06/2024 (Approximate), Expires: 09/06/2025Start: 09-06-2024 End: 10-82-7126Bscpwkuuxv A1c/Hemoglobin.total in BloodHemoglobin A1c Lab Routine Wellness examination Expected: 09/06/2024 (Approximate), Expires: 09/06/2025[facility] HealthcareComment on above:Expected: 09/06/2024 (Approximate), Expires: 09/06/2025Start: 09-06-2024 End: 84-15-9273Toaqn 1996 panel - Serum or PlasmaLipid panel Lab Routine Wellness examination Expected: 09/06/2024 (Approximate), Expires: 09/06/2025[facility] HealthcareComment on above:Expected: 09/06/2024 (Approximate), Expires: 09/06/2025Start: 09-06-2024 End: 07-65-3947Nvkqxys encounter procedureNOMS CWM FMComment on above:Arrived Start: 09-06-2024 End: 42-29-9035LYK W/REFLEX TO FT4TSH W/REFLEX TO FT4 Lab Routine Primary hypertension (CMS/HCC) Wellness examination Expected: 09/06/2024 (Approximate), Expires: 09/06/2025[facility] Work Phone: Comment on above:Expected: 09/06/2024 (Approximate), Expires: 09/06/2025Start: 08-11-2024 End: 82-77-7919Nfpxcji encounter procedureNOMS SWS DERMComment on above:Arrived Start: 49-24-4687Hjgzrtfay vaccinationInfluenza Vaccine (#1)[facility] Start: 16-58-0310Glqomicpo for malignant neoplasm of colonNOMS HealthcareStart: 96-76-7045Xpepmqacvswz Vaccine: 65+ Years (1 of 1 - PCV)Pneumococcal Vaccine: 65+ Years (1 of 1 - PCV)[facility] HealthcareStart: 63-29-3627Ncshwzijf for malignant neoplasm of colonNOMS HealthcareDermatopathology examDermatopathology exam Pathology and Cytology Timed Neoplasm of unspecified behavior of bone, soft ti ssue, and skin Release Upon Ordering for 1 Occurrences starting 08/11/2024[facility] Work Phone: comment on above:Release Upon Ordering for 1 Occurrences starting 4Dermatopathology examDermatopathology exam Pathology and Cytology Timed Neoplasm of unspecified behavior of bone, soft ti ssue, and skin Release Upon Ordering for 1 Occurrences starting 02/09/2025[facility] Work Phone: comment on above:Release Upon Ordering for 1 Occurrences starting 02/09/2025Microalbumin/Creatinine panel in random Urine Microalbumin / creatinine urine ratio Lab Routine Primary hypertension (CMS/HCC) Wellness examination Ordered: 09/06/2024NOB[facility] HospitalComment on above: Ordered: 09/06/2024 Immunizations Immunization DateImmunizationNotesCare PmqojvriKpvpyftk81-52-7075eurqzwcoew, tetanus toxoids and pertussis vaccineR[facility]10-27-2021 Moderna SARS-CoV-2 VaccinationR[facility]03-10-2021Janssen RTXP-DoH-[id number] [facility] Payers DatePayer CategoryPayerPolicy ID2025[place] [id number] 2025Medicare (Managed Care)[employer] [place] [id number] 05-34-3570Jzikjwb Health Insurance [id number] [id number] [id number] 2023Blue Cross Blue ShieldBCBS Member Subscriber Plan / Payer (Effective 2022-Present) Name: Satya Fowler Relation to Subscriber: Self Name: Satya Fowler Chanel PayerID: Not on file Type: Not on file Address: [address] [id number] [id number] 2..[id number] 2..[id number] 2..[id number] 2..[id number] 2..[id number] 2..1.755939.3.57[id number] 2..1.029982.3.57[id number] 2..1.637231.3.579.2.7[id number] Social History DateTypeDetailFacilityStart: 95-48-2133Knniyal smoking status NHISNever smoked tobaccoNOMS HealthcareStart: 23-14-1547Ukosnas use and exposureSmokeless tobacco non-userNOMS HealthcareStart: 03-31-2024 End: 35-79-8755Ueviqnxbt beverage intakeLifetime non-drinker (finding)[facility] HealthcareStart: 03-31-2024 End: 81-97-7737Xdngouh of Social functionNOMS HealthcareStart: 03-31-2024 End: 03-83-0716Wskfchm use panelNOMS HealthcareStart: 50-52-0039Hoi assigned at birthPaul [facility]. [facility] HealthcareStart: 46-80-6045Pxwyau identityIdentifies as male gender (finding)[facility] HealthcareStart: 06-68-6511Fyi often do you need to have someone help you when you read instructions, pamphlets, or other written material from your doctor or pharmacy [SILS]NeverNOMS HealthcareDo you belong to any clubs or organizations such as jain groups, WineMeNows, fraGenSpera or athletic groups, or school groups?YesNOMS HealthcareAre you now , , , , never or living with a partner?DivorcedNOMS HealthcareHow often to you have a drink containing alcohol?Monthly or lessNOMS HealthcareHow many standard drinks containing alcohol do you have on a typical day?1 or 2NOMS HealthcareHow often do you have 6 or more drinks on 1 occasion? NeverNOMS HealthcareDo you feel stress - tense, restless, nervous, or anxious, or unable to sleep at night because yourmind is troubled all the time - these days [OSQ]Not at allNOMS Healthcare(I/We) worried whether (my/our) food would run out before (I/we) got money to buy more.Never trueNOMS HealthcareIn the past 12 months, was there a time when you were not able to pay the mortgage or rent on time?NoNOMS HealthcareStart: 92-68-6612Mrlxfm orientationHeterosexual (finding)[facility] HealthcareNEGATED: Highlighted rowStart: NINFHistory of tobacco usePassive smokerNOMS Healthcare Clinical Notes 08-03-2024 to 08-15-2025 Note Date & ZjsrLyapSnatpxdf10-90-1525 History of Present illness Narrative* Domi Acuna MD - 08/15/2025 2:15 PM EST Images from the original note were not included. Skin Check Location: Patient requests a full body skin examination Dermatologic history: history of Actinic Keratosis, history of Basal Cell Carcinoma, history of Squamous Cell Carcinoma, history of Melanoma Last visit: 1 year ago Established patient Melanoma History: Date of Melanoma Dx: 01/08/2022 Melanoma Details: Type Melanoma in-situ Melanoma Treatment: Type Excision Location: Right forearm All pertinent medical history, medications, and allergies were reviewed. Patient denies fatigue, shortness of breath, enlarged lymph nodes, unintentional weight loss, or abdominal pain today. General Exam: alert, oriented to person, place, and time, normal affect, well appearing Unaccompanied Scalp, Examined Right leg Examined Head, Face Examined Left leg Examined Neck Examined Right foot Examined Chest Examined Left foot Examined Back Examined Buttocks Examined Patient kept underwear on Abdomen Examined Digits,nails: Examined Right arm Examined Left arm Examined Lymphatics: Examined Hands Examined no supraclavicular lymphadenopathy, no axillary lymphadenopathy Skin Exam 1. HISTORY OF MALIGNANT MELANOMA OF SKIN Right Forearm No evidence of recurrence at melanoma scar. The patient was counseled that scars from excisional sites of melanoma should be monitored closely for recurrence. The patient was instructed to contact the office for any new, changing, or symptomatic moles. The patient was also instructed to contact the office for any new lesions that develop within or around the previous melanoma scar. 2. HISTORY OF SCC (SQUAMOUS CELL CARCINOMA) OF SKIN Right Popliteal Fossa No evidence of recurrence at SCC scar. The patient was counseled that scars from excisional sites of nonmelanoma skin cancers should be monitored closely for recurrence. The patient was instructed to contact the office for any new, changing, or symptomatic moles. The patient was also instructed to contact the office for any new lesions that develop within or around the previous surgery scar. 3. HISTORY OF BASAL CELL CARCINOMA Left Lower Leg - Anterior No evidence of recurrence at BCC scar. The patient was counseled that scars from excisional sites of nonmelanoma skin cancers should be monitored closely for recurrence. The patient was instructed to contact the office for any new, changing, or symptomatic moles. The patient was also instructed to contact the office for any new lesions that develop within or around the previous surgery scar. 4. ACTINIC KERATOSIS (2) Left Forehead, Left [place] Erythematous scaly papules Patient was counseled regarding these sun-induced growths that can develop into squamous cell carcinoma if left untreated. Discussed treatment with cryotherapy. It was emphasized that any treated lesions that fail to resolve should be re- evaluated. Cryotherapy performed today; see procedure note Diagnosis: Actinic keratosis Indication: Precancerous Location: see skin exam Consent: Verbal consent was obtained and risks were discussed, including, but not limited to risks of scarring, darker or downstairs maid pigmentary changes, recurrence, incomplete removal and infection. Method: Liquid nitrogen was used to treat the lesion(s) with two 5-10 second freeze-thaw cycles. Number of lesions treated: 2 Post-procedure instructions: Instructions were given orally and in writing. The office will be contacted if the lesion fails to resolve despite treatment, or if a side effect develops such as abnormal crusting, scabbing, redness or tenderness - Cryotherapy, skin lesion - Left Forehead, Left [place] 5. SEBORRHEIC KERATOSIS (2) Generalized, Right Buccal Cheek Stuck on verrucous, bonds-brown papules and plaques. Patient was counseled regarding these benign growths. Removal is normally not necessary, but they may be removed if they are symptomatic or for cosmetic reasons. 6. MELANOCYTIC NEVUS OF RIGHT LOWER EXTREMITY Right Leg Scattered benign appearing, regular brown to light brown melanocytic papules and macules with similar morphology Counseled regarding these benign growths. Rarely, a nevus can develop into malignant melanoma, so any changing nevi should be promptly re-evaluated. 7. EPIDERMAL INCLUSION CYST Upper Back Subcutaneous, mobile nodule without central punctum. Patient was counseled regarding cysts. Although benign, cysts often slowly enlarge and can occasionally become inflamed. Discussed the only way to definitively diagnose the lesion would be to have itremoved and tested. Discussed treatment options including observation vs. excision. Patient elected for observation. Notify office if lesion is enlarging or becomes symptomatic. 8. LENTIGINES Generalized Scattered bonds macules in sun-exposed areas. The patient was informed that lentigines are benign pigmented lesions that occur on sun-exposed andsun-damaged skin. No treatment is necessary. Recommended regular use of broad spectrum sunscreen SPF 30 or higher Next Visit: 6 months documented in this encounterLiberty [id number] History of Present illness Narrative* Genaro Oakes MD - 04/19/2025 10:00 AM EDTAssociated Problem(s): Prediabetes Repeat labs. * Genaro Oakes MD - 04/19/2025 10:00 AM EDTAssociated Problem(s): PRADEEP (obstructive sleep apnea) Doing well with CPAP and continue nightly. Patient is benefiting from PAP therapy. * Genaro Oakes MD - 04/19/2025 10:00 AM EDTAssociated Problem(s): Benign essential hypertension BP elevated today but previously controlled and monitor PRN. * Genaro Oakes MD - 04/19/2025 9:15 AM EDT Images [...] Visit Diagnoses Colon cancer screening Relevant Orders Cologuard colon cancer screening documented in this encounterLiberty [id number] History of Present illness Narrative* Domi Acuna MD - 02/09/2025 10:45 AM EDT Images from the original note were not included. Skin Check Location: Patient requests a full body skin examination Dermatologic history: history of Actinic Keratosis, history of Basal Cell Carcinoma, history of Squamous Cell Carcinoma, history of Melanoma Last visit: 09/2024 (ED&C to BCC on left lower leg) Melanoma History: Date of Melanoma Dx: 01/08/2022 Melanoma Details: Type Melanoma in-situ Melanoma Treatment: Type Excision Location: Right forearm Lesions: Location: right cheek Duration: month Quality: denies pain Associated symptoms: enlarged, rough Treatments: cryotherapy in the past- did not completely go away Established patient All pertinent medical history, medications, and allergies were reviewed. General Exam: alert, oriented to person, place, and time, normal affect, well appearing Unaccompanied Scalp, Examined , exam limited by hair Right leg Examined Head, Face Examined , Exam limited by mustache Left leg Examined Neck Examined Right foot Examined Chest Examined Left foot Examined Back Examined Buttocks Examined Abdomen Examined Digits,nails: Examined Right arm Examined Left arm Examined Lymphatics: Examined Hands Examined no cervical lymphadenopathy, no supraclavicular lymphadenopathy, no axillary lymphadenopathy Skin Exam 1. EPIDERMAL INCLUSION CYST Upper Back Subcutaneous, mobile nodule with central punctum. Patient was counseled regarding cysts. Although benign, cysts often slowly enlarge and can occasionally become inflamed. Discussed the only way to definitively diagnose the lesion would be to have itremoved and tested. Discussed treatment options including observation vs. excision. Patient elected for observation. Notify office if lesion is enlarging or becomes symptomatic. 2. SEBORRHEIC KERATOSIS, INFLAMED Right Parotid Area Heyburn and brown stuck on verrucous scaly papule with surrounding erythema The patient was informed that symptomatic seborrheic keratoses are benign growths that become inflamed, itchy, tender, traumatized, caught on clothing, or bleed. Symptomatic lesions can be treated with cryotherapy or curretage. Thicker lesions treated with cryotherapy may require more than one treatment. The patient was instructed to notify the office if abnormal redness or tenderness develops atthe treatment site. Cryotherapy today, see procedure note. Diagnosis: Inflamed seborrheic keratosis Indication: Inflamed Consent: Verbal consent was obtained and risks were discussed, including, but not limited to risks of scarring, darker or downstairs maid pigmentary changes, recurrence, incomplete removal and infection. Method: Liquid nitrogen was used to treat the lesion(s) with two 5-10 second freeze-thaw cycles Number of lesions treated: 1 Post-procedure instructions: Instructions were given orally and in writing. The office will be contacted if the lesion fails to resolve despite treatment, or if a side effect develops such as abnormal crusting, scabbing, redness or tenderness Cryotherapy, skin lesion - Right Parotid Area 3. LENTIGINES Generalized Scattered bonds macules in sun-exposed areas. The patient was informed that lentigines are benign pigmented lesions that occur on sun-exposed andsun-damaged skin. No treatment is necessary. Recommended regular use of broad spectrum sunscreen SPF 30 or higher 4. SEBACEOUS HYPERPLASIA OF FACE Head - Anterior (Face) Small yellow papules with a central dell. Reassure, benign. Discussed these can be removed for a cosmetic fee with the hyfrecator if desired. 5. NEOPLASM OF UNSPECIFIED BEHAVIOR OF BONE, SOFT TISSUE, AND SKIN Left Chest Heyburn papule Lesion biopsy Type of biopsy: tangential Informed consent: discussed [...] taken Amount of lidocaine used: 1.0 cc Specimen A - Dermatopathology exam Differential Diagnosis: inflamed follicle vs SCC Check Margins: No Size of lesion: 0.8 x 0.7 cm 6. ACTINIC KERATOSIS Right Breast Erythematous scaly papules Patient was counseled regarding these sun-induced growths that can develop into squamous cell carcinoma if left untreated. Discussed treatment with cryotherapy. It was emphasized that any treated lesions that fail to resolve should be re- evaluated. Cryotherapy performed today; see procedure note Diagnosis: Actinic keratosis Indication: Precancerous Location: see skin exam Consent: Verbal consent was obtained and risks were discussed, including, but not limited to risks of scarring, darker or downstairs maid pigmentary changes, recurrence, incomplete removal and infection. Method: Liquid nitrogen was used to treat the lesion(s) with two 5-10 second freeze-thaw cycles. Number of lesions treated: 1 Post-procedure instructions: Instructions were given orally and in writing. The office will be contacted if the lesion fails to resolve despite treatment, or if a side effect develops such as abnormal crusting, scabbing, redness or tenderness Cryotherapy, skin lesion - Right Breast 7. HISTORY OF MALIGNANT MELANOMA OF SKIN Right Forearm No evidence of recurrence at melanoma scar. The patient was counseled that scars from excisional sites of melanoma should be monitored closely for recurrence. The patient was instructed to contact the office for any new, changing, or symptomatic moles. The patient was also instructed to contact the office for any new lesions that develop within or around the previous melanoma scar. 8. HISTORY OF SCC (SQUAMOUS CELL CARCINOMA) OF SKIN Right Popliteal Fossa No evidence of recurrence at SCC scar. The patient was counseled that scars from excisional sites of nonmelanoma skin cancers should be monitored closely for recurrence. The patient was instructed to contact the office for any new, changing, or symptomatic moles. The patient was also instructed to contact the office for any new lesions that develop within or around the previous surgery scar. 9. HISTORY OF BASAL CELL CARCINOMA Left Lower Leg - Anterior No evidence of recurrence at BCC scar. The patient was counseled that scars from excisional sites of nonmelanoma skin cancers should be monitored closely for recurrence. The patient was instructed to contact the office for any new, changing, or symptomatic moles. The patient was also instructed to contact the office for any new lesions that develop within or around the previous surgery scar. Next Visit: 6 months documented in this [facility]03-13-2025 Telephone encounter Note* Telephone Encounter - Diya Saldana - 12/15/2024 8:24 AM EDT Patient changed insurance and pharmacy. Please send to [facility] [id number] Miscellaneous Notes* Telephone Encounter - Diya Saldana - 12/15/2024 8:24 AM EDT Patient changed insurance and pharmacy. Please send to [facility]. documented in this [facility]01-16-2025 History of Present illness Narrative* Genaro Oakes MD - 10/20/2024 12:01 PM ESTAssociated Problem(s): History of melanoma Prior melanoma and follow with derm. * Genaro Oakes MD - 10/20/2024 12:00 PM ESTAssociated Problem(s): PRADEEP (obstructive sleep apnea) Doing well with CPAP and continue nightly. Patient is benefiting from PAP therapy. * Genaro Oakes MD - 10/20/2024 12:00 PM ESTAssociated Problem(s): Prediabetes Discussed low carb diet. * Genaro Oakes MD - 10/20/2024 12:00 PM ESTAssociated Problem(s): CKD stage 3a, GFR 45-59 ml/min (CMS/HCC) Labs show CKD and will monitor. * Genaro Oakes MD - 10/20/2024 11:59 AM ESTAssociated Problem(s): Benign essential hypertension (CMS/HCC) BP controlled and monitor PRN. * Genaro Oakes MD - 10/20/2024 11:00 AM EST Images from the original note were not included. Subjective Patient ID: Satya Fowler is a 63 y.o. male who presents for Follow-up (Check up). Follow up HTN, prediabetes, and PRADEEP. Patient feels well today. Checking BP PRN and typically controlled. BP okay today. Taking medication daily and tolerating without side effects. Recent labs showedmild anemia and prediabetes. A1C 6.2. PRADEEP controlled with CPAP. Using machine nightly for entire time asleep, typically 6-8 hours. Sleeping well and not waking up as much during night. Rested in am and not as tired during day. Review of Systems Constitutional: Negative for fatigue. [...] Items Addressed This Visit Benign essential hypertension (CMS/HCC) - Primary BP controlled and monitor PRN. PRADEEP (obstructive sleep apnea) Doing well with CPAP and continue nightly. Patient is benefiting from PAP therapy. Prediabetes Discussed low carb diet. CKD stage 3a, GFR 45-59 ml/min (CMS/HCC) Labs show CKD and will monitor. documented in this encounterLiberty [id number] History of Present illness Narrative* Domi Acuna MD - 09/14/2024 2:50 PM EST Images from the original note were not included. Subjective Satya Fowler is a 63 y.o. male who presents for the following: Follow-up. Location: left lower leg Date of biopsy: 08/11/2024 Diagnosis: Nodular basal cell carcinoma All pertinent medical history, medications, and allergies were reviewed. General Exam: alert, oriented to person, place, and time, normal affect, well appearing Unaccompanied A focused exam completed based on patient reported problems, see below: 1. Basal cell carcinoma of skin of left lower limb, including hip Left Lower Leg Heyburn macule at the biopsy site. Destr of lesion Complexity: simple Destruction method: electrodesiccation and curettage Informed consent: discussed and consent obtained Informed consent comment: The risks of the procedure were discussed, including, but not limited to risks of scarring, darker or downstairs maid pigmentary changes, recurrence, infection, and incomplete removal Timeout: patient name, date of , surgical site, and procedure verified Timeout comment: Patient and provider identified site. Site was marked. Photo was taken and shown to patient, patient verified this is the correct site. Procedure prep: Patient was prepped and draped in usual sterile fashion Prep type: Chlorhexidine Anesthesia: the lesion was anesthetized in a standard fashion Anesthetic: 1% lidocaine w/ epinephrine 1-100,000 buffered w/ 8.4% NaHCO3 Curettage performed in three different directions: Yes Electrodesiccation performed over the curetted area: Yes Curettage cycles: 3 Lesion length (cm): 0.7 Lesion width (cm): 0.7 Margin per side (cm): 0 Final wound size (cm): 0.7 Hemostasis achieved with: electrodesiccation Outcome: patient tolerated procedure well with no complications Post-procedure details: wound care instructions given Post-procedure details comment: Post-procedure instructions were given verbally and in writing. Theoffice will be contacted if the lesion fails to resolve despite treatment, or if a side effect develops such as abnormal crusting, scabbing, reddness, discharge, or tenderness. Additional details: Amount of lidocaine used: 1.0 cc Previous accession number: [id number] ED&C recommended today due to how well site healed. ED&C completed, see procedure note. Return to clinic prior to next scheduled visit for any signs or symptoms of recurrence, reviewed the signs and symptoms. Next Visit: as scheduled documented in this encounterLiberty [id number] History of Present illness Narrative* Ilsa Ozuna, DELROY - 09/06/2024 2:17 PM ESTAssociated Problem(s): Wellness examination I have reviewed Ht/Wt/BMI, I have reviewed recommended vaccines for patient's age, as well as all recommended screenings I have reviewed available care everywhere notes as well. I have recommended eating a balanced diet,as well as activity as chronic conditions allow It is recommended that the patient have a yearly eye exam, as well as twice a year dental exams Fu in this office for wellness on a yearly basis Diet: Eat three meals per day. Breakfast, lunch, and dinner. Avoid snacking. Avoid eating after 5/6pm. Daily protein GOAL 35% of your intake; [...] GOAL 6-8 hours of sleep per night. * Ilas Ozuna NP - 09/06/2024 2:15 PM ESTAssociated Problem(s): Sleep apnea in adult Hx of PRADEEP, uses it daily. Last Sleep Study in 2008. Compliant with CPAP. * Ilsa Ozuna NP - 09/06/2024 2:14 PM ESTAssociated Problem(s): Primary hypertension (CMS/HCC) Currently taking amlodipine 10mg Checks BP at home; Averages are 125/80 Denies orthostatic changes, dizziness, cough, shortness of breath, swelling in extremities. Continue current regimen. Given BP log, advised pt to record BP and bring log back with them to next visit. * Ilsa Ozuna, [employer] - 09/06/2024 2:00 PM EST Images from the original note were not included. Subjective Patient ID: Satya Fowler is a 63 y.o. male who presents for Follow-up. HPI HTN: Currently taking amlodipine 10mg Checks BP at home; Averages are 125/80 Denies orthostatic changes, dizziness, cough, shortness of breath, swelling in extremities. Continue current regimen. Given BP log, advised pt to record BP and bring log back with them to next visit. Review of Systems Constitutional: Negative for activity change, appetite change, chills, diaphoresis, fatigue, fever and unexpected weight change. HENT: Negative for congestion, ear pain, rhinorrhea, sinus pressure, sinus pain, sneezing, sore throat, trouble swallowing and voice change. Eyes: Negative for visual disturbance. Respiratory: Negative for cough, chest tightness, shortness of breath and wheezing. Cardiovascular: Negative for chest pain, palpitations and leg swelling. Gastrointestinal: Negative for abdominal distention, abdominal pain, blood in stool, constipation, diarrhea and vomiting. Genitourinary: Negative for decreased urine volume, dysuria, flank pain, frequency, hematuria and urgency. Musculoskeletal: Negative for arthralgias, gait problem, joint swelling and myalgias. Skin: Negative for rash. Neurological: Negative for dizziness, tremors, syncope, weakness, light- headedness and headaches. Psychiatric/Behavioral: Negative for decreased concentration and suicidal ideas. The patient is notnervous/anxious. Hematological: Does not bruise/bleed easily. Endocrine: Negative for cold intolerance, heat intolerance, polydipsia, polyphagia and polyuria. Objective Physical Exam Vitals reviewed. Constitutional: Appearance: Normal appearance. HENT: Head: Normocephalic and atraumatic. Right Ear: Tympanic membrane normal. Left Ear: Tympanic membrane normal. Nose: Nose normal. Mouth/Throat: Mouth: Mucous membranes are moist. Pharynx: Oropharynx is clear. Eyes: Pupils: Pupils are equal, round, and reactive to light. Cardiovascular: Rate and Rhythm: Normal rate and regular rhythm. Pulses: Normal pulses. Heart sounds: Normal heart sounds. Pulmonary: Effort: Pulmonary effort is normal. Breath sounds: Normal breath sounds. Abdominal: General: Abdomen is flat. Bowel sounds are normal. Palpations: Abdomen is soft. Musculoskeletal: General: Normal range of motion. Cervical back: Normal range of motion. Skin: General: Skin is warm and dry. Capillary Refill: Capillary refill takes less than 2 seconds. Neurological: General: No focal deficit present. Mental Status: He is alert and oriented to person, place, and time. Psychiatric: Mood and Affect: Mood normal. Behavior: Behavior normal. Assessment/Plan Problem List Items Addressed This Visit Primary hypertension (CMS/HCC) - Primary Currently taking amlodipine 10mg Checks BP at home; Averages are 125/80 Denies orthostatic changes, dizziness, cough, shortness of breath, swelling in extremities. Continue current regimen. Given BP log, advised pt to record BP and bring log back with them to next visit. Relevant Orders TSH W/REFLEX TO FT4 Comprehensive metabolic panel CBC and differential Microalbumin / creatinine urine ratio Sleep apnea in adult Hx of PRADEEP, uses it daily. Last Sleep Study in 2008. Compliant with CPAP. Wellness examination I have reviewed Ht/Wt/BMI, I have reviewed recommended vaccines for patient's age, as well as all recommended screenings I have reviewed available care everywhere notes as well. I have recommended eating a balanced diet,as well as activity as chronic conditions allow It is recommended that the patient have a yearly eye exam, as well as twice a year dental exams Fu in this office for wellness on a yearly basis Diet: Eat three meals per day. Breakfast, lunch, and dinner. Avoid snacking. Avoid eating after 5/6pm. Daily protein GOAL 35% of your intake; [...] GOAL 6-8 hours of sleep per night. Relevant Orders TSH W/REFLEX TO FT4 Lipid panel Hemoglobin A1c Comprehensive metabolic panel CBC and differential Microalbumin / creatinine urine ratio documented in this encounterLiberty [id number] Instructions* Patient Instructions* Ilsa Ozuna NP - 09/06/2024 2:00 PM EST FASTING labs ordered. Nothing to eat or drink for 12 hours prior to blood draw. Water and black coffee ok. documented in this encounterLiberty [id number] History of Present illness Narrative* Domi Acuna MD - 08/11/2024 1:20 PM EST Images from the original note were not included. Skin Check Location: Patient requests a full body skin examination Dermatologic history: history of Actinic Keratosis, history of Basal Cell Carcinoma, history of Squamous Cell Carcinoma in situ, history of Melanoma Last visit: 6 months ago Established patient Melanoma History: Date of Melanoma Dx: 01/08/2022 Melanoma Details: Type Melanoma in-situ Melanoma Treatment: Type Excision Location: Right forearm All pertinent medical history, medications, and allergies were reviewed. General Exam: alert, oriented to person, place, and time, normal affect, well appearing Unaccompanied Scalp, Examined , exam limited by hair Right leg Examined Head, Face Examined Left leg Examined Neck Examined Right foot Examined Chest Examined Left foot Examined Back Examined Buttocks Examined Abdomen Examined Digits,nails: Examined Right arm Examined Left arm Examined Lymphatics: Examined Hands Examined no cervical lymphadenopathy, no axillary lymphadenopathy 1. Seborrheic keratosis (2) Generalized, Right Buccal Cheek Stuck on verrucous, bonds-brown papules and plaques. Patient was counseled regarding these benign growths. Removal is normally not necessary, but they may be removed if they are symptomatic or for cosmetic reasons. 2. Lentigines Head - Anterior (Face) Scattered bonds macules in sun-exposed areas. The patient was informed that lentigines are benign pigmented lesions that occur on sun-exposed andsun-damaged skin. No treatment is necessary. Recommended regular use of broad spectrum sunscreen SPF 30 or higher 3. Melanocytic nevus of right lower extremity Right Leg Scattered benign appearing, regular brown to light brown melanocytic papules and macules with similar morphology Counseled regarding these benign growths. Rarely, a nevus can develop into malignant melanoma, so any changing nevi should be promptly re-evaluated. 4. Epidermal inclusion cyst Upper Back Subcutaneous, mobile nodule WITHOUT central punctum. Patient was counseled regarding cysts. Although benign, cysts often slowly enlarge and can occasionally become inflamed. Discussed the only way to definitively diagnose the lesion would be to have itremoved and tested. Discussed treatment options including observation vs. excision. Patient elected for observation. Notify office if lesion is enlarging or becomes symptomatic. 5. Actinic keratosis (4) Left Zygomatic Area, Right Buccal Cheek (2), Right Hand - Posterior Erythematous scaly papules Patient was counseled regarding these sun-induced growths that can develop into squamous cell carcinoma if left untreated. Discussed treatment with cryotherapy. It was emphasized that any treated lesions that fail to resolve should be re- evaluated. Cryotherapy performed today; see procedure note Diagnosis: Actinic keratosis Indication: Precancerous Location: see skin exam Consent: Verbal consent was obtained and risks were discussed, including, but not limited to risks of scarring, darker or downstairs maid pigmentary changes, recurrence, incomplete removal and infection. Method: Liquid nitrogen was used to treat the lesion(s) with two 5-10 second freeze-thaw cycles. Number of lesions treated: 4 Post-procedure instructions: Instructions were given orally and in writing. The office will be contacted if the lesion fails to resolve despite treatment, or if a side effect develops such as abnormal crusting, scabbing, redness or tenderness Cryotherapy, skin lesion - Left Zygomatic Area, Right Buccal Cheek (2), Right Hand - Posterior 6. History of SCC (squamous cell carcinoma) of skin Right Popliteal Fossa No evidence of recurrence at SCC scar. The patient was counseled that scars from excisional sites of nonmelanoma skin cancers should be monitored closely for recurrence. The patient was instructed to contact the office for any new, changing, or symptomatic moles. The patient was also instructed to contact the office for any new lesions that develop within or around the previous surgery scar. 7. History of malignant melanoma of skin Right Forearm No evidence of recurrence at melanoma scar. The patient was counseled that scars from excisional sites of melanoma should be monitored closely for recurrence. The patient was instructed to contact the office for any new, changing, or symptomatic moles. The patient was also instructed to contact the office for any new lesions that develop within or around the previous melanoma scar. 8. Neoplasm of unspecified behavior of bone, soft tissue, and skin Left Lower Leg Heyburn papule Lesion biopsy Type of biopsy: tangential Informed consent: discussed [...] details: Photo taken Amount of lidocaine used: 1 cc Specimen A - Dermatopathology exam Differential Diagnosis: BCC vs SCC Check Margins: yes Size of lesion: 0.7 x 0.7 cm Next Visit: 6 months documented in this encounterLiberty [id number] Telephone encounter Note* Telephone Encounter - Arline Lopez MA - 08/03/2024 5:17 PM EDT Requesting a refill on his Amlodipine CHANTE:03/31/2024 NOV:09/06/2024 [id number] Miscellaneous Notes* Telephone Encounter - Arline Lopez MA - 08/03/2024 5:17 PM EDT Requesting a refill on his Amlodipine CHANTE:03/31/2024 NOV:09/06/2024 documented in this [facility]* Diagnosis Primary hypertension (CMS/HCC)- Primary Unspecified essential hypertension Need for malaria prophylaxis Sleep apnea in adult- Primary Primary hypertension (CMS/HCC) Unspecified essential hypertension Primary hypertension (CMS/HCC) Unspecified essential hypertension [facility]* Diagnosis Primary hypertension (CMS/HCC)- Primary Unspecified essential hypertension Need for malaria prophylaxis Sleep apnea in adult- Primary Primary hypertension (CMS/HCC) Unspecified essential hypertension Primary hypertension (CMS/HCC) Unspecified essential hypertension [facility]* Diagnosis Primary hypertension (CMS/HCC)- Primary Unspecified essential hypertension Need for malaria prophylaxis Sleep apnea in adult- Primary Primary hypertension (CMS/HCC) Unspecified essential hypertension Seborrheic keratosis- Primary Lentigines Melanocytic nevus of right lower extremity Epidermal inclusion cyst Sebaceous cyst Actinic keratosis History of SCC (squamous cell carcinoma) of skin Personal history of other malignant neoplasm of skin History of malignant melanoma of skin Personal history of malignant melanoma of skin Neoplasm of unspecified behavior of bone, soft tissue, and skin documented [facility]* Diagnosis Primary hypertension (CMS/HCC)- Primary Unspecified essential hypertension Need for malaria prophylaxis Sleep apnea in adult- Primary Primary hypertension (CMS/HCC) Unspecified essential hypertension Primary hypertension (CMS/HCC)- Primary Unspecified essential hypertension Sleep apnea in adult Wellness examination documented [facility] this encounter [facility]* Diagnosis Primary hypertension (CMS/HCC)- Primary Unspecified essential hypertension Need for malaria prophylaxis Sleep apnea in adult- Primary Primary hypertension (CMS/HCC) Unspecified essential hypertension Primary hypertension (CMS/HCC)- Primary Unspecified essential hypertension Sleep apnea in adult Wellness examination Anemia, unspecified type- Primary Prediabetes Other abnormal glucose [facility]* Diagnosis Primary hypertension (CMS/HCC)- Primary Unspecified essential hypertension Need for malaria prophylaxis Sleep apnea in adult- Primary Primary hypertension (CMS/HCC) Unspecified essential hypertension Primary hypertension (CMS/HCC)- Primary Unspecified essential hypertension Sleep apnea in adult Wellness examination Basal cell carcinoma of skin of left lower limb, including hip- Primary documented [facility] this [facility]* Diagnosis Primary hypertension (CMS/HCC)- Primary Unspecified essential hypertension Need for malaria prophylaxis Sleep apnea in adult- Primary Primary hypertension (CMS/HCC) Unspecified essential hypertension Primary hypertension (CMS/HCC)- Primary Unspecified essential hypertension Sleep apnea in adult Wellness examination Benign essential hypertension (CMS/HCC)- Primary Essential hypertension, benign CKD stage 3a, GFR 45-59 ml/min (CMS/HCC) Prediabetes Other abnormal glucose PRADEEP (obstructive sleep apnea) Obstructive sleep apnea (adult) (pediatric) History of melanoma Personal history of malignant melanoma of skin documented [facility] this [facility]* Diagnosis Primary hypertension (CMS/HCC)- Primary Unspecified essential hypertension Need for malaria prophylaxis Sleep apnea in adult- Primary Primary hypertension (CMS/HCC) Unspecified essential hypertension Primary hypertension (CMS/HCC)- Primary Unspecified essential hypertension Sleep apnea in adult Wellness examination Benign essential hypertension (CMS/HCC)- Primary Essential hypertension, benign CKD stage 3a, GFR 45-59 ml/min (CMS/HCC) Prediabetes Other abnormal glucose PRADEEP (obstructive sleep apnea) Obstructive sleep apnea (adult) (pediatric) History of melanoma Personal history of malignant melanoma of skin Primary hypertension (CMS/HCC) Unspecified essential hypertension documented [facility] Diagnosis Primary hypertension (CMS/HCC)- Primary Unspecified essential hypertension Need for malaria prophylaxis Sleep apnea in adult- Primary Primary hypertension (CMS/HCC) Unspecified essential hypertension Primary hypertension (CMS/HCC)- Primary Unspecified essential hypertension Sleep apnea in adult Wellness examination Benign essential hypertension (CMS/HCC)- Primary Essential hypertension, benign CKD stage 3a, GFR 45-59 ml/min (CMS/HCC) Prediabetes Other abnormal glucose PRADEEP (obstructive sleep apnea) Obstructive sleep apnea (adult) (pediatric) History of melanoma Personal history of malignant melanoma of skin Epidermal inclusion cyst- Primary Sebaceous cyst Seborrheic keratosis, inflamed Lentigines Sebaceous hyperplasia of face Neoplasm of unspecified behavior of bone, soft tissue, and skin Actinic keratosis History of malignant melanoma of skin Personal history of malignant melanoma of skin History of SCC (squamous cell carcinoma) of skin Personal history of other malignant neoplasm of skin History of basal cell carcinoma Personal history of other malignant neoplasm of skin [facility]* Diagnosis Primary hypertension- Primary Unspecified essential hypertension Need for malaria prophylaxis Sleep apnea in adult- Primary Primary hypertension Unspecified essential hypertension Primary hypertension- Primary Unspecified essential hypertension Sleep apnea in adult Wellness examination Benign essential hypertension- Primary Essential hypertension, benign CKD stage 3a, GFR 45-59 ml/min ([facility]) Prediabetes Other abnormal glucose PRADEEP (obstructive sleep apnea) Obstructive sleep apnea (adult) (pediatric) History of melanoma Personal history of malignant melanoma of skin Benign essential hypertension- Primary Essential hypertension, benign PRADEEP (obstructive sleep apnea) Obstructive sleep apnea (adult) (pediatric) Prediabetes Other abnormal glucose Iron deficiency anemia, unspecified iron deficiency anemia type Colon cancer screening Special screening for malignant neoplasms, colon documented in this encounter [facility]* Diagnosis Primary hypertension- Primary Unspecified essential hypertension Need for malaria prophylaxis Sleep apnea in adult- Primary Primary hypertension Unspecified essential hypertension Primary hypertension- Primary Unspecified essential hypertension Sleep apnea in adult Wellness examination Benign essential hypertension- Primary Essential hypertension, benign CKD stage 3a, GFR 45-59 ml/min (CMS-HCC) Prediabetes Other abnormal glucose PRADEEP (obstructive sleep apnea) Obstructive sleep apnea (adult) (pediatric) History of melanoma Personal history of malignant melanoma of skin Benign essential hypertension- Primary Essential hypertension, benign PRADEEP (obstructive sleep apnea) Obstructive sleep apnea (adult) (pediatric) Prediabetes Other abnormal glucose Iron deficiency anemia, unspecified iron deficiency anemia type Colon cancer screening Special screening for malignant neoplasms, colon Seborrheic keratosis- Primary History of malignant melanoma of skin Personal history of malignant melanoma of skin History of SCC (squamous cell carcinoma) of skin Personal history of other malignant neoplasm of skin History of basal cell carcinoma Personal history of other malignant neoplasm of skin Actinic keratosis Melanocytic nevus of right lower extremity Epidermal inclusion cyst Sebaceous cyst Lentigines documented in this encounter [facility] Summary Purpose Family History No Family History Records FoundNo Family History Records Found Advance Directives No Advanced Directives Records FoundNo Advanced Directives Records Found Additional Source Comments (unrecognized sect ion and content) No Status Records FoundNo Status Records Found INFORMATION SOURCE (unrecogn ized section and content) DATE CREATED AUTHOR 10/29/2022 [facility] DATE CREATED AUTHOR AUTHOR'S ORGANIZ ATION 08/17/2025 [facility] EPIC Reason for Visit (unrecogniz ed section and content) ReasonOnset DateCommentsMed Upkgqi1408/03/2024easonCommentsSkin CheckReason AdnvtyfaMaruqz-rkIsiyrkWmonghssZzwdcm-riSbxdt upReasonOnset DateCommentsMed Wngdou5812/15/2024ReasonCommentsFollow-up6M F/UP Care Teams (unrecognized sec tion and content) Team MemberRelationshipSpecialtyStart DateEnd Date Shaikh Soto MD [address] [place] [address] PCP - [employer]05/05/24 Genaro Oakes MD [address] [place] [address] PCP - GeneralFamily Medicine06/29/24 Ilsa Ozuna NP [address] [place] [address] [facility]06/29/24Team MemberRelationshipSpecialtyStart DateEnd Date Shaikh Soto MD [address] [place] [address] PCP - [employer]05/05/24 Genaro Oakes MD [address] [place] [address] PCP - GeneralFamily Medicine06/29/24 Ilsa Ozuna NP [address] [place] [address] Nurse PractitionerFami Medicine06/29/24Team MemberRelationshipSpecialtyStart DateEnd Date Shaikh Soto MD [address] [place] [address] PCP - [employer]05/05/24 Genaro Oakes MD [address] [place] [address] PCP - Generalmily Medicine06/29/24 Ilsa Ozuna NP [address] [place] [address] [facility] Medicine06/29/24Team MemberRelationshipSpecialtyStart DateEnd Date Shaikh Soto MD [address] [place] [address] PCP - [employer]05/05/24 Genaro Oakes MD [address] [place] [address] [facility]06/29/24 Ilsa Ozuna, DELROY [address] [place] [address] [facility]06/29/24Team MemberRelationshipSpecialtyStart DateEnd Date Shaikh Soto MD [address] [place] [address] PCP - [employer]05/05/24 Genaro Oakes MD [address] [place] [address] PCP - Generalmily Medicine06/29/24 Ilsa Ozuna NP [address] [place] [address] Nurse PractitionerFamily Medicine06/29/24Team MemberRelationshipSpecialtyStart DateEnd Date Shaikh Soto MD [address] [place] [address] PCP - [employer]05/05/24 Genaro Oakes MD [address] [place] [address] PCP - GeneralFamily Medicine06/29/24 Ilsa Ozuna NP [address] [place] [address] [facility]erKn[facility]ics[facility] Medicine06/29/24Team MemberRelationshipSpecialtyStart DateEnd Date Shaikh Soto MD [address] [place] [address] PCP - [employer]05/05/24 Genaro Oakes MD [address] [place] [address] PCP - GeneralFamily Medicine06/29/24 Ilsa Ozuna NP [address] [place] [address] Nurse Practitionermily Medicine06/29/24Team MemberRelationshipSpecialtyStart DateEnd Date Shaikh Soto MD [address] [place] [address] PCP - [employer]05/05/24 Genaro Oakes MD [address] [place] [address] PCP - GeneralFamily Medicine06/29/24 Ilsa Ozuna NP [address] [place] [address] [facility]06/29/24Team MemberRelationshipSpecialtyStart DateEnd Date Shaikh Soto MD [address] [place] [address] PCP - [employer]05/05/24 Genaro Oakes MD [address] [place] [address] PCP - [facility]Kn[facility]06/29/24 Ilsa Ozuna, [employer] [address] [place] [address] [facility]er[facility]06/29/24Team MemberRelationshipSpecialtyStart DateEnd Date Shaikh Soto MD [address] [place] [address] PCP - [employer]05/05/24 Genaro Oakes MD [address] [place] [address] PCP - GeneralFamily Medicine10/10/24Team MemberRelationshipSpecialtyStart DateEnd Date Shaikh Soto MD [address] [place] [address] PCP - [employer]05/05/24 Genaro Oakes MD [address] [place] [address] PCP - GeneralFamily Medicine10/10/24Team MemberRelationshipSpecialtyStart DateEnd Date Shaikh Soto MD [address] [place] [address] PCP - [employer]05/05/24 Genaro Oakes MD [address] [place] [address] PCP - Generalmily Medicine10/10/24Team MemberRelationshipSpecialtyStart DateEnd Date Shaikh Soto MD [address] [place] [address] PCP - [employer]05/05/24 Genaro Oakes MD [address] [place] [address] PCP - GeneralFamily Medicine10/10/24Team MemberRelationshipSpecialtyStart DateEnd Date Genaro Oakes MD [address] [place] [address] [facility]10/10/24Te MemberRelationshipSpecialtyStart DateEnd Date Genaro Oakes MD [address] [place] [address] [facility]10/10/24Te MemberRelationshipSpecialtyStart DateEnd Date Genaro Oakes MD [address] [place] [address] [facility] - [facility]10/10/24Te MemberRelationshipSpecialtyStart DateEnd Date Genaro Okaes MD [address] [place] [address] [facility]10/10/24Te MemberRelationshipSpecialtyStart DateEnd Date Genaro Oakes MD [address] [place] [address] [facility]10/10/24 FOR RECORDS PERTAINING TO PATIENTS WHO ARE OR HAVE BEEN ENROLLED IN A CHEMICAL DEPENDENCY/SUBSTANCEABUSE PROGRAM, SOME INFORMATION MAY BE OMITTED. This clinical summary was aggregated from multiple sources. Caution should be exercised in using it in the provision of clinical care. This summary normalizes information from multiple sources, and as a consequence, information in this document may materially change the coding, format and clinical context of patient data. In addition, data may be omitted in some cases. CLINICAL DECISIONS SHOULD BE BASED ON THE PRIMARY CLINICAL RECORDS. [facility] [employer] [facility]. provides no warranty or guarantee of the accuracy or completeness of information in this document.
[2025-09-13 10:30] LABS: Hematocrit 40.8 % (42.0-54.0); Hemoglobin 13.7 g/dL (14.0-18.0); Immature Granulocytes Abs Auto 0.02 10^3/uL (0.00-0.03); Immature Granulocytes Pct Auto 0.4 % (0.0-0.5); Lymphocytes Absolute Auto 0.9 10^3/uL (1.2-3.8); Mean Corpuscular HGB Conc 33.6 g/dL (29.9-35.2); Mean Corpuscular Hemoglobin 31.4 pg (25.9-34.0); Mean Corpuscular Volume 93.4 fL (80.0-94.0); Platelet Count 247 10^3/uL (150-450); Red Blood Count 4.37 10^6/uL (4.70-6.10); White Blood Count 4.6 10^3/uL (4.0-11.0)
[2025-09-13 11:31] LABS: Alanine Aminotransferase 49 U/L (16-63); Albumin Globulin Ratio 1.1; Albumin Level 4.0 g/dL (3.4-5.0); Alkaline Phosphatase 57 U/L (46-116); Anion Gap 10.2; Aspartate Amino Transferase 20 U/L (15-37); Blood Urea Nitrogen 18.0 mg/dL (7.0-18.0); Calcium 9.6 mg/dL (8.5-10.1); Carbon Dioxide 31.6 mmol/L (21.0-32.0); Chloride 101 mmol/L (98-107); Cholesterol 153 mg/dL (<=200); Estimated GFR (African America >60 (>=60 mL/min/1.73m^2); Estimated GFR (Non-African Ame >60 (>=60 mL/min/1.73m^2); Globulin 3.5 g/dL; Glucose 116 mg/dL (74-106); HDL Cholesterol 46 mg/dL (40-60); Potassium 3.8 mmol/L (3.5-5.1); Sodium 139 mmol/L (136-145); Thyroid Stimulating Hormone 2.838 uIU/mL (0.358-3.740); Total Protein 7.5 g/dL (6.4-8.2); Triglycerides 73 mg/dL (<=150); VLDL CHOLESTEROL 14.6 mg/dL
== END 2025-09-13 09:44 | disposition home or self-care (01) ==
LOC: LAB 09:45
PROVIDERS: PCP Family Medicine; Visit Provider Family Medicine
DX: R73.03 Prediabetes (principal); Z79.899 Other long term (current) drug therapy; R53.83 Other fatigue; E78.5 Hyperlipidemia, unspecified; Z12.5 Encounter for screening for malignant neoplasm of prostate
CPT/HCPCS: 36415; 80053; 80061; 83036; 84443; 85025; G0103